=== PATIENT | male | born 1945 | race Caucasian/White ===

== ENCOUNTER 2018-08-15 17:28 | Emergency (ER) | payer MEDICARE, MEDICAID ==
[~2018-08-15] VITALS: Ht 177.8 cm; Wt 71.5 kg
[2018-08-15] MEDS ORDERED: acetaminophen 325mg tablet PO ONE (17:40)
--- NOTE | 2018-08-15 17:44 | NUR ---
HAVING SHORTNESS OF BREATH X 2 DAYS. BECAME WORSE TODAY. RESP TACHYPNIC AT 22/MIN. O2 SAT 94% ON ROOM AIR.
[2018-08-15 17:58] LABS: BASOPHILS % (AUTO) 0.4 % (0-1); EOSINOPHILS % (AUTO) 0.3 % (0-6); HEMATOCRIT 45.8 % (42.0-52.0); LYMPHOCYTES # (AUTO) 1.3 X10'3 (1.1-4.8); LYMPHOCYTES % (AUTO) 15.9 % (21-51); MEAN CORPUSCULAR HEMOGLOBIN 32.9 PG (27.0-31.0); MEAN CORPUSCULAR VOLUME 93.9 FL (78-98); MEAN PLATELET VOLUME 7.2 FL (7.4-10.4); MONOCYTES % (AUTO) 12.1 % (2-12); NEUTROPHILS # (AUTO) 5.9 X10'3 (1.8-7.7); NEUTROPHILS % (AUTO) 71.3 % (42-75); PLATELET COUNT 208 X10'3 (140-440); RED BLOOD COUNT 4.87 X10'6 (4.70-6.10); RED CELL DISTRIBUTION WIDTH 13.9 % (11.5-14.5); WHITE BLOOD COUNT 8.3 X10'3 (4.5-11.0)
[2018-08-15] MEDS ORDERED: methylPREDNISolone sod succ 125mg/2ml vial IV ONE (18:10)
[2018-08-15] MEDS ORDERED: ipratropium/albuterol 3ml nebule NEB ONE (18:10)
[2018-08-15 18:24] LABS: ALANINE AMINOTRANSFERASE 44 U/L (12-78); ALBUMIN 4.2 G/DL (3.4-5.0); ALBUMIN/GLOBULIN RATIO 0.9 (1.1-1.5); ALKALINE PHOSPHATASE 98 IU/L (46-116); ANION GAP 9 (8-16); ASPARTATE AMINO TRANSFERASE 34 U/L (10-37); BILIRUBIN,TOTAL 0.6 MG/DL (0.1-1.0); BLOOD UREA NITROGEN 11 MG/DL (7-18); BUN/CREATININE RATIO 9.8 (5.4-32.0); CALCIUM 9.4 MG/DL (8.5-10.1); CHLORIDE 98 MMOL/L (99-107); CREATININE 1.12 MG/DL (0.60-1.10); GLUCOSE 100 MG/DL (70-104); POTASSIUM 4.1 MMOL/L (3.5-5.1); SODIUM 133 MMOL/L (135-145); TOTAL CARBON DIOXIDE 26.4 MMOL/L (24-32); TOTAL PROTEIN 9.1 G/DL (6.4-8.2); eGFR 64 ML/MIN
[2018-08-15] MEDS ORDERED: azithromycin/NS 500mg/250ml 250 ML IV ONE (18:30)
[2018-08-15] MEDS ORDERED: CefTRIAXone/D5W-Rocephin 1gm 50 ML IV ONE (18:30)
[2018-08-15] MEDS ORDERED: AZIT250T83 PO (19:40)
[2018-08-15] MEDS ORDERED: PRED20TA PO (19:40)
--- NOTE | 2018-08-15 20:06 | NUR ---
RT AT BEDSIDE
[2018-08-15 20:35] VITALS: BP 141/91
== END 2018-08-15 20:37 | disposition home or self-care (01) ==
LOC: ER 17:28
DX: J44.1 Chronic obstructive pulmonary disease with (acute) exacerbation (principal); J06.9 Acute upper respiratory infection, unspecified; F17.200 Nicotine dependence, unspecified, uncomplicated; G89.29 Other chronic pain; Z79.899 Other long term (current) drug therapy; Z88.5 Allergy status to narcotic agent
CPT/HCPCS: 36415; 71046; 80053; 83605; 85025; 87040; 93005; 94640; 94760; 96365; 96367; 96375; 99284; J0456; J0696; J2930

== ENCOUNTER 2019-02-27 09:23 | Emergency (ER) | payer MEDICARE, MEDICAID ==
[~2019-02-27] VITALS: Ht 177.8 cm; Wt 68.1 kg
[2019-02-27 09:28] VITALS: BP 158/115
[2019-02-27] MEDS ORDERED: HYDR-3965 PO (12:32)
== END 2019-02-27 12:44 | disposition home or self-care (01) ==
LOC: ER 09:24
DX: G89.29 Other chronic pain (principal); M54.2 Cervicalgia; J44.9 Chronic obstructive pulmonary disease, unspecified; Z88.5 Allergy status to narcotic agent; Z79.899 Other long term (current) drug therapy
CPT/HCPCS: 99283

== ENCOUNTER 2020-07-08 10:36 | Emergency (ER) | payer MEDICARE, MEDICAID ==
[~2020-07-08] VITALS: Ht 175.3 cm; Wt 65.1 kg
[2020-07-08] MEDS ORDERED: cloNIDine 0.1 mg tablet PO ONE (10:45)
[2020-07-08] MEDS ORDERED: traMADol 50MG tablet PO ONE (10:45)
[2020-07-08 11:23] LABS: BASOPHILS % (AUTO) 0.3 % (0-1); EOSINOPHILS # (AUTO) 0.2 X10'3 (0-0.9); EOSINOPHILS % (AUTO) 2.4 % (0-6); HEMATOCRIT 47.4 % (42.0-52.0); HEMOGLOBIN 16.3 g/dl (14.0-17.9); LYMPHOCYTES # (AUTO) 1.5 X10'3 (1.1-4.8); LYMPHOCYTES % (AUTO) 15.4 % (21-51); MEAN CORPUSCULAR HEMOGLOBIN 32.5 PG (27.0-31.0); MEAN CORPUSCULAR HGB CONC 34.3 g/dL (33.0-36.5); MEAN CORPUSCULAR VOLUME 94.6 FL (78-98); MEAN PLATELET VOLUME 7.3 FL (7.4-10.4); MONOCYTES # (AUTO) 1.1 X10'3 (0-0.9); MONOCYTES % (AUTO) 11.1 % (2-12); NEUTROPHILS # (AUTO) 6.9 X10'3 (1.8-7.7); NEUTROPHILS % (AUTO) 70.8 % (42-75); PLATELET COUNT 255 X10'3 (140-440); RED BLOOD COUNT 5.01 X10'6 (4.70-6.10); RED CELL DISTRIBUTION WIDTH 13.5 % (11.5-14.5); WHITE BLOOD COUNT 9.7 X10'3 (4.5-11.0)
[2020-07-08 11:30] LABS: ALANINE AMINOTRANSFERASE 32 U/L (12-78); ALBUMIN 3.9 G/DL (3.4-5.0); ALBUMIN/GLOBULIN RATIO 0.8 (1.1-1.5); ALKALINE PHOSPHATASE 103 IU/L (46-116); ANION GAP 10 (8-16); ASPARTATE AMINO TRANSFERASE 24 U/L (10-37); BILIRUBIN,TOTAL 0.5 MG/DL (0.1-1.0); BLOOD UREA NITROGEN 14 MG/DL (7-18); BUN/CREATININE RATIO 15.2 (5.4-32.0); CALCIUM 9.5 MG/DL (8.5-10.1); CHLORIDE 98 MMOL/L (99-107); CREATININE 0.92 MG/DL (0.60-1.10); GLUCOSE 110 MG/DL (70-104); POTASSIUM 4.7 MMOL/L (3.5-5.1); SODIUM 136 MMOL/L (135-145); TOTAL CARBON DIOXIDE 27.6 MMOL/L (24-32); eGFR 80 ML/MIN
[2020-07-08] MEDS ORDERED: TRAM50TA2 PO (11:51)
[2020-07-08 12:19] VITALS: BP 165/109
== END 2020-07-08 12:22 | disposition home or self-care (01) ==
LOC: ER 10:37
DX: F11.23 Opioid dependence with withdrawal (principal); I10 Essential (primary) hypertension; M54.2 Cervicalgia; J44.9 Chronic obstructive pulmonary disease, unspecified; G89.29 Other chronic pain; Z88.5 Allergy status to narcotic agent; Z79.899 Other long term (current) drug therapy
CPT/HCPCS: 36415; 80053; 84484; 85025; 93005; 99284

== ENCOUNTER 2020-08-07 19:15 | Inpatient (IN) | payer MEDICARE, MEDICAID ==
[~2020-08-07] VITALS: Ht 172.7 cm; Wt 69.4 kg
[~2020-08-07 19:15] MED LIST: ALBU18HF2 INH; ALBU2.5V7 INH; ATOR10TA70 PO; FLUT16SP26 NS; LANS30CA37 PO; LEVO50TA8 PO; LORA10TA7 PO; PRED10TA23 PO; TRAM50TA2 PO; UMEC62.5 INH; rocuronium 10mg/ml inj IV ONE
[2020-08-07] MEDS ORDERED: dexamethasone sod phosphate 10mg/ml inj IV STA (19:20)
[2020-08-07] MEDS ORDERED: MIDAZolam 5mg/ml 2ml vial IV ONE (19:20)
[2020-08-07] MEDS: propofol 1000mg/100ml bottle 100 ML IV SCH (19:28)
[2020-08-07 19:59] LABS: BASOPHILS % (AUTO) 0.2 % (0-1); EOSINOPHILS # (AUTO) 0.2 X10'3 (0-0.9); EOSINOPHILS % (AUTO) 2.1 % (0-6); HEMATOCRIT 42.3 % (42.0-52.0); HEMOGLOBIN 14.5 g/dl (14.0-17.9); LYMPHOCYTES # (AUTO) 1.1 X10'3 (1.1-4.8); LYMPHOCYTES % (AUTO) 10.6 % (21-51); MEAN CORPUSCULAR HGB CONC 34.2 g/dL (33.0-36.5); MEAN CORPUSCULAR VOLUME 96.4 FL (78-98); MEAN PLATELET VOLUME 6.9 FL (7.4-10.4); MONOCYTES # (AUTO) 0.7 X10'3 (0-0.9); MONOCYTES % (AUTO) 6.8 % (2-12); NEUTROPHILS # (AUTO) 8.2 X10'3 (1.8-7.7); NEUTROPHILS % (AUTO) 80.3 % (42-75); PLATELET COUNT 154 X10'3 (140-440); RED BLOOD COUNT 4.39 X10'6 (4.70-6.10); RED CELL DISTRIBUTION WIDTH 14.1 % (11.5-14.5); WHITE BLOOD COUNT 10.2 X10'3 (4.5-11.0)
[2020-08-07 20:06] LABS: ABG BASE EXCESS -1.3 mmol/L (-2.0-2.0); ABG HCO3 26.6 mmol/L (22.0-26.0); ABG OXYGEN SATURATION 99.7 % (94-97); ABG PO2 (T) 349.5 mmHg (75.0-100.0); ALLEN'S TEST Modified; FCOHb 0.8 % (0.0-3.9); FMetHb 0.5 % (0.0-1.5); FO2Hb 98.4 % (94-97); PATIENT TEMPERATURE 37.1; PEEP 5 cm H2O; RESPIRATORY RATE 16 b/min; TIDAL VOLUME 450 mL
[2020-08-07 20:15] LABS: ALANINE AMINOTRANSFERASE 35 U/L (12-78); ALBUMIN 3.1 G/DL (3.4-5.0); ALBUMIN/GLOBULIN RATIO 0.7 (1.1-1.5); ALKALINE PHOSPHATASE 94 IU/L (46-116); ANION GAP 9 (8-16); ASPARTATE AMINO TRANSFERASE 33 U/L (10-37); BILIRUBIN,TOTAL 0.4 MG/DL (0.1-1.0); BLOOD UREA NITROGEN 11 MG/DL (7-18); BUN/CREATININE RATIO 11.8 (5.4-32.0); CHLORIDE 100 MMOL/L (99-107); CREATININE 0.93 MG/DL (0.60-1.10); GLUCOSE 132 MG/DL (70-104); SODIUM 137 MMOL/L (135-145); TOTAL CARBON DIOXIDE 28.4 MMOL/L (24-32); TOTAL PROTEIN 7.7 G/DL (6.4-8.2); eGFR 79 ML/MIN
[2020-08-07 20:19] LABS: POTASSIUM 3.9 MMOL/L (3.5-5.1)
[2020-08-07 20:22] LABS: TRIGLYCERIDES 59 MG/DL (20-135)
[2020-08-07] MEDS ORDERED: heparin 10,000 units/1 ML INJ IV PRN (20:30)
[2020-08-07] MEDS ORDERED: heparin 25,000 UNIT/250ml bag 250 ML IV SCH (20:30)
[2020-08-07] MEDS ORDERED: heparin 10,000 units/1 ML INJ IV ONE ×2 (20:30)
--- NOTE | 2020-08-07 21:03 | NUR ---
DR. MICHELLE CALLED TO UPDATE THAT PT WITH SYSTOLIC BPS' DROPPING TO MID 90'S AND REQUESTING ADTL SEDATION RX FOR MANAGEMENT. VERBAL RECEIVED TO AD FENTANYL PROTOCOL FOR SEDATION. AND FENTANYL 100 MCG IV PUSH X1 NOW. PT AWAITING IPA.
[2020-08-07] MEDS ORDERED: FENTANYL-0.9 % NACL/PF 100 ML IV PRN (21:10)
[2020-08-07] MEDS ORDERED: fentaNYL/PF 50MCG/1 ML 2ML syringe IV ONE (21:10)
--- NOTE | 2020-08-07 21:30 | NUR ---
PTS BP DROPPING TO 76 SYSTOLIC, LEVOPHED STARTED (TELEPHONE BERBAL RECEIVED FROM DR. MILLIGAN EARLIER TO STARTE THIS IF PTS BPS' DROPPING). FENTANYL GTT AND PROPOFOL GTT AND LEVOPHED NOW INFUSING AT 12.9 ML HR. B 112/80. HR 97
[2020-08-07] MEDS ORDERED: NORepinephrine inj. 8 MG in dextrose 5%-water 242 ML IV SCH (21:45)
--- NOTE | 2020-08-07 22:00 | NUR ---
YAMILETH LEDESMA, AT BEDSDIE AND ET TUBE NOTED TO HAVE MIGRATED SLIGHTLY. REPOSITIONED AND VENT NO LONGER ALARMING. AWAITING PTT RESULT TO START HEPARIN GTT.
[2020-08-07 22:07] LABS: PARTIAL THROMBOPLASTIN TIME 28 SECONDS (22-32)
[2020-08-07] MEDS ORDERED: acetaminophen 325mg tablet PO PRN ×2 (22:30)
[2020-08-07] MEDS ORDERED: ondansetron/PF 4mg/2ml inj IV PRN (22:30)
[2020-08-07] MEDS ORDERED: morphine 2 MG/ML inj. syringe IV PRN (22:30)
[2020-08-07] MEDS ORDERED: magnesium hydroxide 30ml (MOM) UD suspension PO PRN (22:30)
--- NOTE | 2020-08-07 23:11 | NUR ---
DR MILLIGAN CALLED TO UPDATE 3 HR TROP 1.48 UP FROM 0.13. NO NEW ORDERS. PT IS ON HEPARIN GTT AND DID RECEIVE THE PROTOCOL BOULS. PT REMAINS ON LEVOPHED, FENT GTT, PROPOFOL GTT. BY
--- NOTE | 2020-08-07 23:13 | NUR ---
REPORT TO MARISA EGAN, ICU, IPA [id number]
--- NOTE | 2020-08-07 23:40 | NUR ---
Received Report from Indy CUNNINGHAM. PT [facility]. PT on ventilator and was bolused by diprivan during transfer when patient became agitated.
[2020-08-08] VITALS (24 sets, daily range): BP systolic 91–127; BP diastolic 56–79
[2020-08-08] MEDS: propofol 1000mg/100ml bottle 100 ML IV SCH ×4 (00:10→18:49)
[2020-08-08] MEDS ORDERED: dexmedetomidine/D5W 100mL 100 ML IV PRN (01:15)
[2020-08-08] MEDS: NORepinephrine 8mg/ 250ml NS 250 ML IV SCH ×2 (01:33→09:49)
[2020-08-08] MEDS: methylPREDNISolone sod succ 125mg/2ml vial IV SCH ×4 (02:03→19:51)
[2020-08-08] MEDS ORDERED: heparin 10,000 units/1 ML INJ IV PRN (02:15)
[2020-08-08] MEDS: ipratropium/albuterol 3ml nebule NEB SCH ×4 (03:10→20:45)
[2020-08-08 03:35] LABS: BASOPHILS % (AUTO) 0 % (0-1); EOSINOPHILS % (AUTO) 0 % (0-6); HEMATOCRIT 40.2 % (42.0-52.0); HEMOGLOBIN 13.7 g/dl (14.0-17.9); LYMPHOCYTES # (AUTO) 0.5 X10'3 (1.1-4.8); LYMPHOCYTES % (AUTO) 3.4 % (21-51); MEAN CORPUSCULAR HEMOGLOBIN 32.8 PG (27.0-31.0); MEAN CORPUSCULAR HGB CONC 33.9 g/dL (33.0-36.5); MEAN CORPUSCULAR VOLUME 96.5 FL (78-98); MEAN PLATELET VOLUME 7.9 FL (7.4-10.4); MONOCYTES # (AUTO) 0.4 X10'3 (0-0.9); MONOCYTES % (AUTO) 2.7 % (2-12); NEUTROPHILS # (AUTO) 13.3 X10'3 (1.8-7.7); NEUTROPHILS % (AUTO) 93.9 % (42-75); PLATELET COUNT 192 X10'3 (140-440); RED BLOOD COUNT 4.17 X10'6 (4.70-6.10); RED CELL DISTRIBUTION WIDTH 14.1 % (11.5-14.5); WHITE BLOOD COUNT 14.2 X10'3 (4.5-11.0)
[2020-08-08 03:48] LABS: ALANINE AMINOTRANSFERASE 30 U/L (12-78); ALBUMIN 2.9 G/DL (3.4-5.0); ALBUMIN/GLOBULIN RATIO 0.7 (1.1-1.5); ALKALINE PHOSPHATASE 79 IU/L (46-116); ANION GAP 10 (8-16); ASPARTATE AMINO TRANSFERASE 29 U/L (10-37); BILIRUBIN,TOTAL 0.7 MG/DL (0.1-1.0); BLOOD UREA NITROGEN 13 MG/DL (7-18); BUN/CREATININE RATIO 11.3 (5.4-32.0); CALCIUM 8.9 MG/DL (8.5-10.1); CHLORIDE 99 MMOL/L (99-107); CREATININE 1.15 MG/DL (0.60-1.10); GLUCOSE 245 MG/DL (70-104); MAGNESIUM 1.8 MG/DL (1.5-2.4); PHOSPHORUS 2.8 MG/DL (2.3-4.5); POTASSIUM 4.2 MMOL/L (3.5-5.1); SODIUM 134 MMOL/L (135-145); TOTAL PROTEIN 7.3 G/DL (6.4-8.2); TRIGLYCERIDES 44 MG/DL (20-135); eGFR 62 ML/MIN
[2020-08-08 03:54] LABS: PARTIAL THROMBOPLASTIN TIME 129 SECONDS (22-32)
[2020-08-08 04:02] LABS: ABG BASE EXCESS -2.4 mmol/L (-2.0-2.0); ABG HCO3 22.7 mmol/L (22.0-26.0); ABG OXYGEN SATURATION 92.5 % (94-97); ABG PCO2 (T) 38.6 mmHg (35.0-48.0); ABG PO2 (T) 60.5 mmHg (75.0-100.0); FMetHb 0.3 % (0.0-1.5); FO2Hb 91.3 % (94-97); PATIENT TEMPERATURE 36.2; RESPIRATORY RATE 20 b/min; TIDAL VOLUME 500 mL; TOTAL HEMOGLOBIN 15.1 G/dl (14.0-18.0)
--- NOTE | 2020-08-08 04:38 | NUR ---
critical Ptt, blood redrawn. still high, heparin stopped.
--- NOTE | 2020-08-08 04:56 | NUR ---
DR. Lewis did tele med rounds, Due to the high troponins he wanted the O2 saturations to be above 92 %, in case patient is having a NSTEMI. He wanted the Levophed titrated down as well as the diprivan.
[2020-08-08] MEDS: FENTANYL-0.9 % NACL/PF 100 ML IV PRN ×2 (05:17→15:09)
--- NOTE | 2020-08-08 06:26 | NUR ---
Patient in room ICU 2040. I have received report from Jayesh CUNNINGHAM and had the opportunity to ask questions and assume patient care.
[2020-08-08] MEDS: heparin 25,000 UNIT/250ml bag 250 ML IV SCH ×3 (06:54→16:47)
[2020-08-08] MEDS: azithromycin/NS 500mg/250ml 250 ML IV SCH (07:28)
[2020-08-08] MEDS ORDERED: normal saline 1000ml 1,000 ML IV ONE (07:45)
[2020-08-08] MEDS: normal saline 1000ml 1,000 ML IV SCH ×2 (07:53→17:46)
[2020-08-08] MEDS ORDERED: azithromycin 250mg tablet PO SCH (08:00)
[2020-08-08] MEDS ORDERED: atorvastatin 20mg tablet PO SCH (08:00)
[2020-08-08 08:28] LABS: ABG BASE EXCESS -3.4 mmol/L (-2.0-2.0); ABG HCO3 21.3 mmol/L (22.0-26.0); ABG OXYGEN SATURATION 97.1 % (94-97); ABG PCO2 (T) 36.6 mmHg (35.0-48.0); ABG PO2 (T) 89.8 mmHg (75.0-100.0); ALLEN'S TEST POSITIVE; FCOHb 0.1 % (0.0-3.9); FMetHb 0.2 % (0.0-1.5); FO2Hb 96.8 % (94-97); PATIENT TEMPERATURE 36.4; PEEP 6 cm H2O; RESPIRATORY RATE 20 b/min; TIDAL VOLUME 450 mL; TOTAL HEMOGLOBIN 14.1 G/dl (14.0-18.0)
[2020-08-08] MEDS ORDERED: aspirin 325mg tablet PO SCH (08:30)
[2020-08-08] MEDS ORDERED: pantoprazole 40 MG vial IV ONE (10:08)
[2020-08-08] MEDS ORDERED: magnesium hydroxide 30ml (MOM) UD suspension PO PRN (10:10)
--- NOTE | 2020-08-08 10:47 | NUR ---
TF consult: Pt presented with respiratory distress requiring intubation. OG tube documented to be in place, see TF recommendations below. Noted that pt with a low Audi of 10, no edema or wounds per physical assessment. Unknown LBM, PRN bowel care available though pt would benefit from routine bowel care. Will continue to follow closely and make recommendations as appropriate. Recommendations: 1) Continuous TF via OG tube using Vital AF with goal rate of 65 mL/hr to provide 1560 mL total volume/day, 1872 kcal, 117 g protein, and 1256 mL water 2) No water flushes at this time given low serum Na (134 MMOL/L) 3) Prealbumin q Tuesday/ 4) Daily weights 5) Routine bowel care Addendum: 08/08/20 at [address] Amended: Links added.
[2020-08-08] MEDS ORDERED: acetaminophen 325mg/10.15ml oral unit dose solution OGT PRN ×2 (10:54)
[2020-08-08] MEDS ORDERED: magnesium hydroxide 30ml (MOM) UD suspension OGT PRN ×2 (10:55→10:56)
[2020-08-08] MEDS ORDERED: LANS30CA56 PO (12:18)
[2020-08-08] MEDS: dexmedetomidine/D5W 100mL 100 ML IV SCH (14:33)
[2020-08-08] MEDS ORDERED: dextrose 50%-water 50ml dispensing syringe IV PRN ×2 (15:15)
[2020-08-08] MEDS ORDERED: glucagon, human recombinant 1mg kit SUBCUT PRN (15:15)
[2020-08-08] MEDS ORDERED: dextrose ORAL solution 15 GM/59 ML bottle PO PRN ×2 (15:15)
[2020-08-08] MEDS: insulin regular, human U-100 3ml vial - multi-dose SQ SCH ×2 (15:44→19:47)
--- NOTE | 2020-08-08 18:26 | NUR ---
Problems reprioritized. Patient report given, questions answered & plan of care reviewed with Jayesh CUNNINGHAM.
--- NOTE | 2020-08-08 19:28 | NUR ---
Patient in room ICU 2040. I have received report from Purnima CUNNINGHAM and had the opportunity to ask questions and assume patient care.
[2020-08-08] MEDS: insulin glargine (Lantus) pen - multi-dose SQ SCH (19:48)
[2020-08-08] MEDS: lactobacillus rhamnosus 10,000 MMU CELLS/CAPSULE PO SCH (19:51)
[2020-08-09] VITALS (24 sets, daily range): BP systolic 88–132; BP diastolic 53–81
[2020-08-09] MEDS: dexmedetomidine/D5W 100mL 100 ML IV SCH ×2 (00:50→10:51)
[2020-08-09] MEDS ORDERED: mineral oil/petrolatum ophthal oint EACHEYE SCH (02:00)
[2020-08-09] MEDS: insulin regular, human U-100 3ml vial - multi-dose SQ SCH ×2 (02:12→08:58)
[2020-08-09] MEDS: methylPREDNISolone sod succ 125mg/2ml vial IV SCH ×4 (02:17→20:15)
[2020-08-09] MEDS: mineral oil/petrolatum ophthal oint EACHEYE SCH ×4 (02:17→20:00)
[2020-08-09] MEDS: ipratropium/albuterol 3ml nebule NEB SCH ×4 (02:55→20:42)
[2020-08-09 03:01] LABS: BASOPHILS % (AUTO) 0.2 % (0-1); EOSINOPHILS % (AUTO) 0 % (0-6); HEMATOCRIT 36.5 % (42.0-52.0); HEMOGLOBIN 12.4 g/dl (14.0-17.9); LYMPHOCYTES # (AUTO) 0.6 X10'3 (1.1-4.8); LYMPHOCYTES % (AUTO) 4.2 % (21-51); MEAN CORPUSCULAR HEMOGLOBIN 32.6 PG (27.0-31.0); MEAN CORPUSCULAR VOLUME 95.8 FL (78-98); MEAN PLATELET VOLUME 7.7 FL (7.4-10.4); MONOCYTES # (AUTO) 0.5 X10'3 (0-0.9); NEUTROPHILS # (AUTO) 12.2 X10'3 (1.8-7.7); NEUTROPHILS % (AUTO) 91.6 % (42-75); PLATELET COUNT 170 X10'3 (140-440); RED BLOOD COUNT 3.81 X10'6 (4.70-6.10); WHITE BLOOD COUNT 13.3 X10'3 (4.5-11.0)
[2020-08-09 03:19] LABS: ALANINE AMINOTRANSFERASE 25 U/L (12-78); ALBUMIN 2.3 G/DL (3.4-5.0); ALBUMIN/GLOBULIN RATIO 0.6 (1.1-1.5); ALKALINE PHOSPHATASE 63 IU/L (46-116); ANION GAP 6 (8-16); ASPARTATE AMINO TRANSFERASE 24 U/L (10-37); BILIRUBIN,TOTAL 0.2 MG/DL (0.1-1.0); BLOOD UREA NITROGEN 9 MG/DL (7-18); BUN/CREATININE RATIO 12.9 (5.4-32.0); CALCIUM 8.4 MG/DL (8.5-10.1); CHLORIDE 108 MMOL/L (99-107); GLUCOSE 137 MG/DL (70-104); PHOSPHORUS 2.5 MG/DL (2.3-4.5); SODIUM 141 MMOL/L (135-145); TOTAL CARBON DIOXIDE 27.4 MMOL/L (24-32); TOTAL PROTEIN 6.4 G/DL (6.4-8.2); TRIGLYCERIDES 49 MG/DL (20-135); eGFR > 90 ML/MIN
[2020-08-09 03:47] LABS: ABG BASE EXCESS -0.3 mmol/L (-2.0-2.0); ABG HCO3 23.9 mmol/L (22.0-26.0); ABG OXYGEN SATURATION 93.1 % (94-97); ABG PCO2 (T) 36.4 mmHg (35.0-48.0); ABG PO2 (T) 62.4 mmHg (75.0-100.0); FCOHb 0.3 % (0.0-3.9); FMetHb 0.2 % (0.0-1.5); FO2Hb 92.6 % (94-97); PATIENT TEMPERATURE 36.4; PEEP 6 cm H2O; RESPIRATORY RATE 18 b/min; TIDAL VOLUME 450 mL; TOTAL HEMOGLOBIN 12.9 G/dl (14.0-18.0)
[2020-08-09] MEDS ORDERED: levoTHYROXINE 25mcg tablet PO ONE (04:21)
[2020-08-09] MEDS: normal saline 1000ml 1,000 ML IV SCH ×3 (04:55→23:45)
[2020-08-09] MEDS: azithromycin/NS 500mg/250ml 250 ML IV SCH (08:34)
[2020-08-09] MEDS: pantoprazole 40 MG vial IV SCH (08:38)
[2020-08-09] MEDS: aspirin 325mg tablet OGT SCH (08:39)
[2020-08-09] MEDS: lactobacillus rhamnosus 10,000 MMU CELLS/CAPSULE PO SCH ×2 (08:39→20:15)
[2020-08-09] MEDS: atorvastatin 20mg tablet OGT SCH (08:40)
[2020-08-09] MEDS: NORepinephrine 8mg/ 250ml NS 250 ML IV SCH (11:57)
[2020-08-09] MEDS: traMADol 50MG tablet PO PRN ×2 (15:09→20:29)
[2020-08-09] MEDS ORDERED: insulin Lispro (HumaLOG) vial - multi-dose SQ SCH (16:00)
--- NOTE | 2020-08-09 19:00 | NUR ---
Patient in room ICU 2040. I have received report from ANAIS CUNNINGHAM and had the opportunity to ask questions and assume patient care.
[2020-08-09] MEDS: insulin glargine (Lantus) pen - multi-dose SQ SCH (21:00)
[2020-08-09] MEDS: heparin 25,000 UNIT/250ml bag 250 ML IV SCH (22:58)
[2020-08-10] VITALS (28 sets, daily range): BP systolic 124–181; BP diastolic 67–111
[2020-08-10] MEDS: propofol 1000mg/100ml bottle 100 ML IV SCH (01:05)
[2020-08-10] MEDS: mineral oil/petrolatum ophthal oint EACHEYE SCH ×5 (02:00→21:00)
[2020-08-10] MEDS: traMADol 50MG tablet PO PRN ×3 (02:55→18:17)
[2020-08-10] MEDS: levoTHYROXINE 25mcg tablet PO SCH (02:57)
[2020-08-10] MEDS: methylPREDNISolone sod succ 125mg/2ml vial IV SCH ×4 (02:58→20:43)
[2020-08-10] MEDS: ipratropium/albuterol 3ml nebule NEB SCH ×4 (03:27→22:30)
[2020-08-10 03:50] LABS: BASOPHILS % (AUTO) 0.1 % (0-1); EOSINOPHILS % (AUTO) 0 % (0-6); HEMATOCRIT 37.3 % (42.0-52.0); HEMOGLOBIN 12.6 g/dl (14.0-17.9); LYMPHOCYTES # (AUTO) 0.6 X10'3 (1.1-4.8); LYMPHOCYTES % (AUTO) 4.3 % (21-51); MEAN CORPUSCULAR HEMOGLOBIN 32.3 PG (27.0-31.0); MEAN CORPUSCULAR HGB CONC 33.9 g/dL (33.0-36.5); MEAN CORPUSCULAR VOLUME 95.3 FL (78-98); MEAN PLATELET VOLUME 7.6 FL (7.4-10.4); MONOCYTES # (AUTO) 0.5 X10'3 (0-0.9); MONOCYTES % (AUTO) 3.4 % (2-12); NEUTROPHILS # (AUTO) 12.6 X10'3 (1.8-7.7); NEUTROPHILS % (AUTO) 92.2 % (42-75); PLATELET COUNT 179 X10'3 (140-440); RED BLOOD COUNT 3.92 X10'6 (4.70-6.10); RED CELL DISTRIBUTION WIDTH 14.2 % (11.5-14.5); WHITE BLOOD COUNT 13.7 X10'3 (4.5-11.0)
[2020-08-10 04:03] LABS: ALANINE AMINOTRANSFERASE 36 U/L (12-78); ALBUMIN 2.4 G/DL (3.4-5.0); ALBUMIN/GLOBULIN RATIO 0.6 (1.1-1.5); ALKALINE PHOSPHATASE 68 IU/L (46-116); ANION GAP 6 (8-16); ASPARTATE AMINO TRANSFERASE 32 U/L (10-37); BILIRUBIN,TOTAL 0.3 MG/DL (0.1-1.0); BLOOD UREA NITROGEN 15 MG/DL (7-18); CALCIUM 8.4 MG/DL (8.5-10.1); CHLORIDE 107 MMOL/L (99-107); CREATININE 0.75 MG/DL (0.60-1.10); GLUCOSE 104 MG/DL (70-104); MAGNESIUM 1.8 MG/DL (1.5-2.4); PHOSPHORUS 2.5 MG/DL (2.3-4.5); SODIUM 140 MMOL/L (135-145); TOTAL CARBON DIOXIDE 27.1 MMOL/L (24-32); TOTAL PROTEIN 6.5 G/DL (6.4-8.2); eGFR > 90 ML/MIN
[2020-08-10] MEDS: NORepinephrine 8mg/ 250ml NS 250 ML IV SCH ×2 (07:21→21:19)
[2020-08-10] MEDS: aspirin 325mg tablet OGT SCH (07:47)
[2020-08-10] MEDS: lactobacillus rhamnosus 10,000 MMU CELLS/CAPSULE PO SCH ×2 (07:47→20:42)
[2020-08-10] MEDS: atorvastatin 20mg tablet OGT SCH (07:48)
[2020-08-10] MEDS: pantoprazole 40 MG vial IV SCH (07:48)
[2020-08-10] MEDS: azithromycin/NS 500mg/250ml 250 ML IV SCH (07:51)
[2020-08-10] MEDS: dexmedetomidine/D5W 100mL 100 ML IV SCH ×2 (09:49→21:19)
[2020-08-10] MEDS ORDERED: atenolol 50mg tablet PO ONE (13:25)
[2020-08-10] MEDS: normal saline 1000ml 1,000 ML IV SCH (14:53)
--- NOTE | 2020-08-10 18:20 | NUR ---
Problems reprioritized. Patient report given, questions answered & plan of care reviewed with MARISA Ortez.
--- NOTE | 2020-08-10 18:30 | NUR ---
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
--- NOTE | 2020-08-10 18:30 | NUR ---
Patient in room ICU 2040. I have received report from MARISA Lou and had the opportunity to ask questions and assume patient care.
[2020-08-10] MEDS ORDERED: midazolam 1 mg/ML 2ml injection ONE ×2 (18:33→19:32)
[2020-08-10] MEDS ORDERED: LIDOcaine 1% (10mg/ml)w/preservative injection 20ml MDV ONE (18:33)
[2020-08-10] MEDS ORDERED: iohexol 350 MG/ML 50ML vial IV ONE (18:33)
[2020-08-10] MEDS ORDERED: iohexol 350MG/ML 100ml bottle IV ONE ×2 (18:33→19:24)
[2020-08-10] MEDS ORDERED: fentaNYL/PF 50MCG/1 ML 2ML syringe ONE (18:33)
[2020-08-10] MEDS ORDERED: heparin 1,000unit/ml 10ml vial 10 ML ONE (18:33)
--- NOTE | 2020-08-10 18:55 | NUR ---
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
[2020-08-10] MEDS ORDERED: clopidogrel 300mg tablet ONE (20:01)
[2020-08-10] MEDS ORDERED: metoprolol tartrate 1mg/ml inj IV ONE (20:11)
--- NOTE | 2020-08-10 20:30 | NUR ---
back from [facility]
[2020-08-10] MEDS: atenolol 50mg tablet PO SCH (20:43)
[2020-08-10] MEDS: insulin glargine (Lantus) pen - multi-dose SQ SCH (21:00)
[2020-08-10] MEDS ORDERED: labetalol 20mg/4ml (5mg/ml) syringe IV ONE (21:35)
--- NOTE | 2020-08-10 21:36 | NUR ---
MD Garnett notified of patient's high blood pressure, last 181/104. ordered a one time order of labetalol 10 IV and a cardene drip if that does not work. will give and continue to monitor.
[2020-08-10] MEDS ORDERED: normal saline 1000ml 1,000 ML IV SCH (22:10)
[2020-08-10] MEDS ORDERED: ondansetron/PF 4mg/2ml inj IV PRN (22:10)
[2020-08-10] MEDS ORDERED: proCHLORperazine 10 MG/2 ml inj IV PRN (22:10)
[2020-08-10] MEDS ORDERED: niCARDipine-NS 40mg/200ml IVPB 200 ML IV PRN (23:10)
[2020-08-11] VITALS (19 sets, daily range): BP systolic 102–155; BP diastolic 65–103
[2020-08-11] MEDS: methylPREDNISolone sod succ 125mg/2ml vial IV SCH ×4 (01:44→19:29)
[2020-08-11] MEDS: levoTHYROXINE 25mcg tablet PO SCH (01:44)
[2020-08-11] MEDS: traMADol 50MG tablet PO PRN ×3 (01:59→16:28)
[2020-08-11 02:10] LABS: BASOPHILS % (AUTO) 0.1 % (0-1); EOSINOPHILS % (AUTO) 0 % (0-6); HEMATOCRIT 36.5 % (42.0-52.0); HEMOGLOBIN 12.5 g/dl (14.0-17.9); LYMPHOCYTES # (AUTO) 0.7 X10'3 (1.1-4.8); LYMPHOCYTES % (AUTO) 5.9 % (21-51); MEAN CORPUSCULAR HGB CONC 34.2 g/dL (33.0-36.5); MEAN CORPUSCULAR VOLUME 96.4 FL (78-98); MEAN PLATELET VOLUME 7.2 FL (7.4-10.4); MONOCYTES # (AUTO) 0.4 X10'3 (0-0.9); MONOCYTES % (AUTO) 3.6 % (2-12); NEUTROPHILS # (AUTO) 10.3 X10'3 (1.8-7.7); NEUTROPHILS % (AUTO) 90.4 % (42-75); PLATELET COUNT 182 X10'3 (140-440); RED BLOOD COUNT 3.78 X10'6 (4.70-6.10); RED CELL DISTRIBUTION WIDTH 13.9 % (11.5-14.5); WHITE BLOOD COUNT 11.4 X10'3 (4.5-11.0)
[2020-08-11 02:31] LABS: ALANINE AMINOTRANSFERASE 46 U/L (12-78); ALBUMIN 2.4 G/DL (3.4-5.0); ALBUMIN/GLOBULIN RATIO 0.6 (1.1-1.5); ALKALINE PHOSPHATASE 67 IU/L (46-116); ANION GAP 7 (8-16); ASPARTATE AMINO TRANSFERASE 36 U/L (10-37); BILIRUBIN,TOTAL 0.3 MG/DL (0.1-1.0); BLOOD UREA NITROGEN 16 MG/DL (7-18); BUN/CREATININE RATIO 20.8 (5.4-32.0); CALCIUM 7.9 MG/DL (8.5-10.1); CHLORIDE 105 MMOL/L (99-107); CHOL/HDL RATIO 2.5 (0.00-4.99); CHOLESTEROL 191 MG/DL (0-200); CREATININE 0.77 MG/DL (0.60-1.10); GLUCOSE 146 MG/DL (70-104); HDL CHOLESTEROL 75 MG/DL (35-60); LDL CHOLESTEROL 102 MG/DL (50-100); POTASSIUM 3.6 MMOL/L (3.5-5.1); PREALBUMIN 15.4 MG/DL (19-36); SODIUM 141 MMOL/L (135-145); TOTAL CARBON DIOXIDE 29.5 MMOL/L (24-32); TOTAL PROTEIN 6.4 G/DL (6.4-8.2); TRIGLYCERIDES 57 MG/DL (20-135); eGFR > 90 ML/MIN
[2020-08-11] MEDS: ipratropium/albuterol 3ml nebule NEB SCH ×4 (03:08→20:52)
--- NOTE | 2020-08-11 06:27 | NUR ---
Problems reprioritized. Patient report given, questions answered & plan of care reviewed with MARISA Spangler.
--- NOTE | 2020-08-11 06:30 | NUR ---
Received report from MARISA Ortez
[2020-08-11] MEDS: mineral oil/petrolatum ophthal oint EACHEYE SCH ×3 (06:40→19:29)
[2020-08-11] MEDS: metoprolol tartrate 25mg tablet PO SCH ×2 (08:00→20:00)
[2020-08-11] MEDS: lactobacillus rhamnosus 10,000 MMU CELLS/CAPSULE PO SCH ×2 (08:51→19:29)
[2020-08-11] MEDS: azithromycin/NS 500mg/250ml 250 ML IV SCH (08:51)
[2020-08-11] MEDS: aspirin 325mg tablet OGT SCH (08:51)
[2020-08-11] MEDS: pantoprazole 40 MG vial IV SCH (08:51)
[2020-08-11] MEDS: atenolol 50mg tablet PO SCH (08:52)
[2020-08-11] MEDS: clopidogrel 75mg tablet PO SCH (08:53)
[2020-08-11] MEDS: atorvastatin 20mg tablet OGT SCH (08:53)
--- NOTE | 2020-08-11 10:50 | NUR ---
Reassessment: Pt extubated 08/09 s/p cardiac cath and stent 08/10 per RN. Advanced to carb controlled/SB6 diet per [employer]/MD recs; MINNA d/w RN regarding cancelling carb controlled diet if MD agreeable given no hx DM and GLU 109-146mg/dl on solumedrol. Pt PO 100% initial meals meeting needs. LBM 08/09. Will continue to monitor. Recommendations: 1) Advance diet to regular/SB6 as medically indicated per [employer]/MD recs; no hx DM 2) routine bowel care 3) weekly weights Addendum: 08/11/20 at [address] Amended: Links added.
--- NOTE | 2020-08-11 16:30 | NUR ---
Report called to MARISA Rollins
--- NOTE | 2020-08-11 16:50 | NUR ---
Patient transferred to Telemetry unit room 3015A via wheelchair, youth nutritional monitor, on 2L NC, and with all belongings. Receiving RN, Ria, at bedside.
--- NOTE | 2020-08-11 18:00 | NUR ---
Patient in room PCU 3016R. I have received report from Leeanne RN and had the opportunity to ask questions and assume patient care.
--- NOTE | 2020-08-11 18:06 | NUR ---
[place]rientee documentation: I have reviewed and agree with interventions, assessments performed and documented by Ria CUNNINGHAM. [place] Medication Administration: For this medication-pass time frame, medication were reviewed, dispensed, administered and documented per hospital policy by Ria CUNNINGHAM.
--- NOTE | 2020-08-11 18:20 | NUR ---
Problems reprioritized. Patient report given, questions answered & plan of care reviewed with Clara CUNNINGHAM.
[2020-08-11] MEDS: insulin glargine (Lantus) pen - multi-dose SQ SCH (21:00)
--- NOTE | 2020-08-11 21:40 | NUR ---
pt not given his dose of Lantus. Morning blood sugar unknown, evening blood sugar is 138
[2020-08-12] MEDS: traMADol 50MG tablet PO PRN ×4 (00:10→21:42)
[2020-08-12] MEDS: mineral oil/petrolatum ophthal oint EACHEYE SCH ×4 (01:05→20:00)
[2020-08-12] MEDS: methylPREDNISolone sod succ 125mg/2ml vial IV SCH ×4 (01:05→19:59)
[2020-08-12] MEDS: levoTHYROXINE 25mcg tablet PO SCH (01:05)
[2020-08-12 02:00] VITALS: BP 162/97
[2020-08-12] MEDS: ipratropium/albuterol 3ml nebule NEB SCH ×4 (02:42→21:19)
[2020-08-12 06:00] VITALS: BP 153/92
--- NOTE | 2020-08-12 06:31 | NUR ---
Problems reprioritized. Patient report given, questions answered & plan of care reviewed with MARISA Rollins.
[2020-08-12 06:45] LABS: BASOPHILS % (AUTO) 0 % (0-1); EOSINOPHILS % (AUTO) 0 % (0-6); HEMATOCRIT 38.7 % (42.0-52.0); HEMOGLOBIN 13.3 g/dl (14.0-17.9); LYMPHOCYTES # (AUTO) 0.7 X10'3 (1.1-4.8); LYMPHOCYTES % (AUTO) 6.2 % (21-51); MEAN CORPUSCULAR HEMOGLOBIN 32.8 PG (27.0-31.0); MEAN CORPUSCULAR HGB CONC 34.4 g/dL (33.0-36.5); MEAN CORPUSCULAR VOLUME 95.2 FL (78-98); MEAN PLATELET VOLUME 7.3 FL (7.4-10.4); MONOCYTES # (AUTO) 0.4 X10'3 (0-0.9); MONOCYTES % (AUTO) 3.5 % (2-12); NEUTROPHILS % (AUTO) 90.3 % (42-75); PLATELET COUNT 195 X10'3 (140-440); RED BLOOD COUNT 4.07 X10'6 (4.70-6.10); WHITE BLOOD COUNT 11.1 X10'3 (4.5-11.0)
--- NOTE | 2020-08-12 06:51 | NUR ---
Patient in room PCU 3015. I have received report from Herminia CUNNINGHAM and had the opportunity to ask questions and assume patient care.
[2020-08-12] MEDS: pantoprazole 40 MG vial IV SCH (07:26)
[2020-08-12] MEDS: lactobacillus rhamnosus 10,000 MMU CELLS/CAPSULE PO SCH ×2 (07:33→19:59)
[2020-08-12] MEDS: clopidogrel 75mg tablet PO SCH (07:34)
[2020-08-12] MEDS: atorvastatin 20mg tablet OGT SCH (07:34)
[2020-08-12] MEDS: aspirin 325mg tablet OGT SCH (07:35)
[2020-08-12] MEDS: metoprolol tartrate 25mg tablet PO SCH ×2 (07:35→19:59)
[2020-08-12] MEDS: azithromycin/NS 500mg/250ml 250 ML IV SCH (09:26)
[2020-08-12 11:00] VITALS: BP 143/91
[2020-08-12 15:00] VITALS: BP 135/83
[2020-08-12 18:00] VITALS: BP 165/103
--- NOTE | 2020-08-12 18:11 | NUR ---
Problems reprioritized. Patient report given, questions answered & plan of care reviewed with Arvind CUNNINGHAM.
[2020-08-12] MEDS: insulin glargine (Lantus) pen - multi-dose SQ SCH (21:00)
[2020-08-12 22:00] VITALS: BP 139/85
[2020-08-13 02:00] VITALS: BP 153/95
[2020-08-13] MEDS: mineral oil/petrolatum ophthal oint EACHEYE SCH ×3 (02:00→11:51)
[2020-08-13] MEDS: methylPREDNISolone sod succ 125mg/2ml vial IV SCH ×3 (02:33→14:00)
[2020-08-13] MEDS: levoTHYROXINE 25mcg tablet PO SCH (02:33)
[2020-08-13] MEDS: ipratropium/albuterol 3ml nebule NEB SCH ×2 (03:03→08:44)
[2020-08-13] MEDS: traMADol 50MG tablet PO PRN ×2 (04:06→14:29)
[2020-08-13 06:00] VITALS: BP 186/96
[2020-08-13] MEDS: clopidogrel 75mg tablet PO SCH (07:18)
[2020-08-13] MEDS: pantoprazole 40 MG vial IV SCH (07:18)
[2020-08-13] MEDS: lactobacillus rhamnosus 10,000 MMU CELLS/CAPSULE PO SCH (07:18)
[2020-08-13] MEDS: atorvastatin 20mg tablet OGT SCH (07:18)
[2020-08-13] MEDS: metoprolol tartrate 25mg tablet PO SCH (07:18)
[2020-08-13] MEDS: aspirin 325mg tablet OGT SCH (07:21)
[2020-08-13 07:50] LABS: BASOPHILS % (AUTO) 0.1 % (0-1); EOSINOPHILS % (AUTO) 0 % (0-6); HEMATOCRIT 39.8 % (42.0-52.0); HEMOGLOBIN 13.9 g/dl (14.0-17.9); LYMPHOCYTES # (AUTO) 0.6 X10'3 (1.1-4.8); LYMPHOCYTES % (AUTO) 6.4 % (21-51); MEAN CORPUSCULAR HEMOGLOBIN 33.1 PG (27.0-31.0); MEAN CORPUSCULAR HGB CONC 34.8 g/dL (33.0-36.5); MEAN CORPUSCULAR VOLUME 94.9 FL (78-98); MEAN PLATELET VOLUME 7.5 FL (7.4-10.4); MONOCYTES # (AUTO) 0.4 X10'3 (0-0.9); MONOCYTES % (AUTO) 4.1 % (2-12); NEUTROPHILS # (AUTO) 8.6 X10'3 (1.8-7.7); NEUTROPHILS % (AUTO) 89.4 % (42-75); PLATELET COUNT 224 X10'3 (140-440); RED BLOOD COUNT 4.19 X10'6 (4.70-6.10); RED CELL DISTRIBUTION WIDTH 13.8 % (11.5-14.5); WHITE BLOOD COUNT 9.6 X10'3 (4.5-11.0)
[2020-08-13] MEDS ORDERED: pneumococcal 23-VAL P-sac vacc 25 mcg/0.5ml vial IMVAC ONE (08:00)
[2020-08-13] MEDS ORDERED: ATOR20TA66 PO (09:01)
[2020-08-13] MEDS ORDERED: CLOP75TA34 PO (09:01)
[2020-08-13] MEDS ORDERED: TRAM50TA2 PO (09:01)
[2020-08-13] MEDS ORDERED: LOP25T PO (09:01)
[2020-08-13] MEDS ORDERED: ASPI-1 OGT (09:01)
[2020-08-13 11:49] VITALS: BP 151/90
--- NOTE | 2020-08-13 14:41 | NUR ---
PATIENT DC AT THIS TIME, DC INSTRUCTIONS GIVEN AND IV TAKEN OUT, MEDS FROM PHARMACY PICKED UP AND COUNTED WITH PHARMACISTY WITH CORRECT COUNT PATIENT GIVEN MEDS. NO OTHER NEEDS AT THIS TIME.
[2020-08-14] MEDS ORDERED: lansoprazole 15mg solutab OGT SCH (08:00)
== END 2020-08-13 14:43 | disposition home health service (06) | DRG 246 ==
LOC: ER 19:17 → ED HOLD 22:30 → UNDOADMIN 22:30 → ED HOLD 22:41 → ICU 2S 23:32 → PCU 3S 08-11 16:55
PROVIDERS: ADMIT Internal Medicine Pulmonary Disease; ATTEND Internal Medicine Pulmonary Disease
PROC: 5A1945Z Respiratory Ventilation, 24-96 Consecutive Hours (ICD-10-PCS; 2020-08-07)
PROC: 0BH17EZ Insertion of Endotracheal Airway into Trachea, Via Natural or Artificial Opening (ICD-10-PCS; 2020-08-07)
PROC: 0D9670Z Drainage of Stomach with Drainage Device, Via Natural or Artificial Opening (ICD-10-PCS; 2020-08-07)
PROC: 02HV33Z Insertion of Infusion Device into Superior Vena Cava, Percutaneous Approach (ICD-10-PCS; 2020-08-07)
PROC: B548ZZA Ultrasonography of Superior Vena Cava, Guidance (ICD-10-PCS; 2020-08-07)
PROC: 4A023N7 Measurement of Cardiac Sampling and Pressure, Left Heart, Percutaneous Approach (ICD-10-PCS; principal; 2020-08-10)
PROC: 027135Z Dilation of Coronary Artery, Two Arteries with Two Drug-eluting Intraluminal Devices, Percutaneous Approach (ICD-10-PCS; 2020-08-10)
PROC: B2111ZZ Fluoroscopy of Multiple Coronary Arteries using Low Osmolar Contrast (ICD-10-PCS; 2020-08-10)
PROC: B2151ZZ Fluoroscopy of Left Heart using Low Osmolar Contrast (ICD-10-PCS; 2020-08-10)
DX: I21.4 Non-ST elevation (NSTEMI) myocardial infarction (principal); J96.02 Acute respiratory failure with hypercapnia; J14 Pneumonia due to Hemophilus influenzae; J96.01 Acute respiratory failure with hypoxia; J44.1 Chronic obstructive pulmonary disease with (acute) exacerbation; I42.9 Cardiomyopathy, unspecified; J44.0 Chronic obstructive pulmonary disease with (acute) lower respiratory infection; E11.9 Type 2 diabetes mellitus without complications; I10 Essential (primary) hypertension; Z20.822 Contact with and (suspected) exposure to COVID-19; G89.29 Other chronic pain; F17.210 Nicotine dependence, cigarettes, uncomplicated; I48.91 Unspecified atrial fibrillation; Z78.1 Physical restraint status; Z88.5 Allergy status to narcotic agent; Z79.02 Long term (current) use of antithrombotics/antiplatelets; Z79.899 Other long term (current) drug therapy
CPT/HCPCS: 31500; 36556; 93306; 93458; 96365; 99291; C9600; 36415; 36600; 71045; 80053; 80061; 82803; 82948; 83735; 83880; 84100; 84134; 84478; 84484; 85018; 85025; 85610; 85730; 87070; 87077; 87081; 87185; 87635; 90732; 92508; 92616; 93005; 93308; 94002; 94003; 94640; 94760; 94799; 97110; 97161; 97530; 97535; 99152; 99153; A6258; C1725; C1751; C1760; C1769; C1874; C1894; C9113; C9803; G0378; J0456; J1100; J1644; J1815; J2001; J2250; J2704; J2930; J3010; J3490; J7030; Q9967

== ENCOUNTER 2022-02-16 17:23 | Emergency (ER) | payer MEDICARE, MEDICAID ==
[~2022-02-16] VITALS: Ht 177.8 cm; Wt 65.9 kg
[~2022-02-16 17:23] MED LIST changes: +ALBU17AE26 IH; -ALBU18HF2 INH; +ALBU2.5V10 NEB; -ALBU2.5V7 INH; -ATOR10TA70 PO; +ATOR40TA72 PO; +CLOP75TA33 PO; +FLUT1BLS4 INH; -LANS30CA37 PO; -LORA10TA7 PO; +METO25TA6 PO; +NITR0.4T48 SL; -PRED10TA23 PO; -UMEC62.5 INH; -rocuronium 10mg/ml inj IV ONE
[2022-02-16] MEDS ORDERED: magnesium 2GM in 50ml NS 50 ML IV ONE (17:35)
[2022-02-16] MEDS ORDERED: albuterol 2.5 MG/3 ML nebule CONTNEB PRN (17:35)
[2022-02-16] MEDS ORDERED: methylPREDNISolone sod succ 125mg/2ml vial IV ONE (17:35)
[2022-02-16 18:32] LABS: BASOPHILS % (AUTO) 0.5 % (0-1); EOSINOPHILS # (AUTO) 0.2 X10'3 (0-0.9); EOSINOPHILS % (AUTO) 2.5 % (0-6); HEMATOCRIT 41.6 % (42.0-52.0); LYMPHOCYTES # (AUTO) 1.7 X10'3 (1.1-4.8); LYMPHOCYTES % (AUTO) 25.4 % (21-51); MEAN CORPUSCULAR HEMOGLOBIN 31.8 PG (27.0-31.0); MEAN CORPUSCULAR HGB CONC 33.6 g/dL (33.0-36.5); MEAN CORPUSCULAR VOLUME 94.6 FL (78-98); MONOCYTES # (AUTO) 0.7 X10'3 (0-0.9); NEUTROPHILS # (AUTO) 4.1 X10'3 (1.8-7.7); NEUTROPHILS % (AUTO) 61.6 % (42-75); PLATELET COUNT 221 X10'3 (140-440); RED CELL DISTRIBUTION WIDTH 13.9 % (11.5-14.5); WHITE BLOOD COUNT 6.7 X10'3 (4.5-11.0)
[2022-02-16 18:48] LABS: ALANINE AMINOTRANSFERASE 42 U/L (12-78); ALBUMIN 3.4 G/DL (3.4-5.0); ALBUMIN/GLOBULIN RATIO 0.8 (1.1-1.5); ALKALINE PHOSPHATASE 92 IU/L (46-116); ANION GAP 9 (8-16); ASPARTATE AMINO TRANSFERASE 32 U/L (10-37); BILIRUBIN,TOTAL 0.4 MG/DL (0.1-1.0); BLOOD UREA NITROGEN 21 MG/DL (7-18); BUN/CREATININE RATIO 22.8 (5.4-32.0); CALCIUM 8.8 MG/DL (8.5-10.1); CHLORIDE 99 MMOL/L (99-107); CREATININE 0.92 MG/DL (0.60-1.10); GLUCOSE 115 MG/DL (70-104); POTASSIUM 4.1 MMOL/L (3.5-5.1); SODIUM 133 MMOL/L (135-145); TOTAL CARBON DIOXIDE 25.2 MMOL/L (24-32); TOTAL PROTEIN 7.6 G/DL (6.4-8.2); eGFR 80 ML/MIN
[2022-02-16] MEDS ORDERED: PRED20TA PO (18:59)
[2022-02-16] MEDS ORDERED: GUAI-422 PO (19:17)
[2022-02-16] MEDS ORDERED: ipratropium/albuterol 3ml nebule NEB ONE (19:20)
[2022-02-16 20:25] VITALS: BP 113/63
== END 2022-02-16 20:00 | disposition home or self-care (01) ==
LOC: ER 17:23
DX: J44.1 Chronic obstructive pulmonary disease with (acute) exacerbation (principal); I10 Essential (primary) hypertension; G89.29 Other chronic pain; Z88.5 Allergy status to narcotic agent; Z79.899 Other long term (current) drug therapy; Z79.1 Long term (current) use of non-steroidal anti-inflammatories (NSAID)
CPT/HCPCS: 36415; 71045; 80053; 83880; 84484; 85025; 93005; 94640; 94644; 96365; 96375; 99285; J2930; J3475; 94760; A7015

== ENCOUNTER 2023-03-28 12:21 | Inpatient (IN) | payer MEDICARE, MEDICAID ==
[2023-03-28] VITALS (7 sets, daily range): BP systolic 118–128; BP diastolic 64–81; PULSE 78–109; RESP 16–24; TEMP 97.6; O2SAT 92–97
[~2023-03-28] VITALS: Ht 177.8 cm; Wt 64.9 kg
[~2023-03-28 12:21] MED LIST changes: -ALBU17AE26 IH; +ALBU18HF2 PO; -ALBU2.5V10 NEB; +ASPI-611 PO; +GUAI600T45 PO; +MULT-1085 PO; -NITR0.4T48 SL
[2023-03-28 13:08] LABS: BASOPHILS % (AUTO) 0.2 % (0-1); EOSINOPHILS % (AUTO) 0.2 % (0-6); HEMATOCRIT 45.1 % (42.0-52.0); HEMOGLOBIN 15.6 g/dl (14.0-17.9); LYMPHOCYTES # (AUTO) 0.6 X10'3 (1.1-4.8); LYMPHOCYTES % (AUTO) 5.3 % (21-51); MEAN CORPUSCULAR HEMOGLOBIN 31.4 PG (27.0-31.0); MEAN CORPUSCULAR HGB CONC 34.6 g/dL (33.0-36.5); MEAN CORPUSCULAR VOLUME 90.8 FL (78-98); MEAN PLATELET VOLUME 7.6 FL (7.4-10.4); MONOCYTES # (AUTO) 0.4 X10'3 (0-0.9); MONOCYTES % (AUTO) 3.7 % (2-12); NEUTROPHILS # (AUTO) 10.9 X10'3 (1.8-7.7); NEUTROPHILS % (AUTO) 90.6 % (42-75); PLATELET COUNT 163 X10'3 (140-440); RED BLOOD COUNT 4.97 X10'6 (4.70-6.10); RED CELL DISTRIBUTION WIDTH 15.5 % (11.5-14.5)
[2023-03-28] MEDS ORDERED: pantoprazole 40 MG vial IV STA (13:13)
[2023-03-28] MEDS ORDERED: albuterol 2.5 MG/3 ML nebule CONTNEB PRN (13:15)
[2023-03-28] MEDS ORDERED: aspirin 325mg tablet PO ONE (13:15)
[2023-03-28] MEDS ORDERED: albuterol 2.5 MG/3 ML nebule NEB ONE (13:15)
[2023-03-28] MEDS ORDERED: ipratropium 0.5 MG/2.5ML nebule IH ONE (13:15)
[2023-03-28] MEDS ORDERED: methylPREDNISolone sod succ 125mg/2ml vial IV ONE (13:15)
[2023-03-28] MEDS ORDERED: guaiFENesin/DM 10ml UD oral syrup PO ONE (13:15)
[2023-03-28] MEDS ORDERED: ipratropium/albuterol 3ml nebule NEB ONE (13:15)
[2023-03-28] MEDS ORDERED: CefTRIAXone/D5W-Rocephin 1gm 50 ML IV ONE (13:20)
[2023-03-28] MEDS ORDERED: azithromycin/NS 500mg/250ml 250 ML IV ONE (13:20)
[2023-03-28 13:21] LABS: ALANINE AMINOTRANSFERASE 35 U/L (12-78); ALBUMIN 3.5 G/DL (3.4-5.0); ALBUMIN/GLOBULIN RATIO 0.8 (1.1-1.5); ALKALINE PHOSPHATASE 107 IU/L (46-116); ANION GAP 6 (8-16); ASPARTATE AMINO TRANSFERASE 33 U/L (10-37); BILIRUBIN,TOTAL 0.6 MG/DL (0.1-1.0); BLOOD UREA NITROGEN 20 MG/DL (7-18); BUN/CREATININE RATIO 21.3 (10.0-20.0); CALCIUM 9.3 MG/DL (8.5-10.1); CHLORIDE 95 MMOL/L (99-107); CREATININE 0.94 MG/DL (0.60-1.10); GLUCOSE 124 MG/DL (70-104); POTASSIUM 4.9 MMOL/L (3.5-5.1); SODIUM 133 MMOL/L (135-145); TOTAL CARBON DIOXIDE 31.7 MMOL/L (24-32); TOTAL PROTEIN 7.9 G/DL (6.4-8.2); eCRCL 61 ML/MIN; eGFR 78 ML/MIN
[2023-03-28 13:28] LABS: PRO BRAIN NATRIURETIC PEPTIDE 202 PG/ML (0-450)
[2023-03-28] MEDS ORDERED: albuterol 2.5 MG/3 ML nebule CONTNEB ONE (13:30)
[2023-03-28 13:55] LABS: ABG BASE EXCESS 1.9 mmol/L (-2.0-2.0); ABG HCO3 27.5 mmol/L (22.0-26.0); ABG OXYGEN SATURATION 97.8 % (94-97); ABG PCO2 (T) 46.2 mmHg (35.0-48.0); ABG PH (T) 7.393 (7.340-7.440); ABG PO2 (T) 107.3 mmHg (75.0-100.0); ALLEN'S TEST POSITIVE; FCOHb 0.5 % (0.0-3.9); FHHb 2.2 % (0.0-5.0); FLOW 5 L/min; FMetHb 0.4 % (0.0-1.5); FO2Hb 96.9 % (94-97); MODE NASAL CANNULA; TOTAL HEMOGLOBIN 16.1 G/dl (14.0-17.9)
[2023-03-28] MEDS ORDERED: magnesium 4gm in 100ml NS 100 ML IV PRN (14:20)
[2023-03-28] MEDS ORDERED: magnesium 2GM in 50ml NS 50 ML IV PRN (14:20)
[2023-03-28] MEDS ORDERED: ondansetron/PF 4mg/2ml inj IV PRN (14:20)
[2023-03-28] MEDS ORDERED: potassium Cl 20 mEq SR tablet PO PRN ×2 (14:20)
[2023-03-28] MEDS ORDERED: albuterol 2.5 MG/3 ML nebule NEB PRN (14:20)
[2023-03-28] MEDS ORDERED: acetaminophen 325mg tablet PO PRN (14:20)
[2023-03-28] MEDS ORDERED: HYDROmorphone/PF 0.2 MG/ML SYRINGE IV PRN (14:20)
[2023-03-28] MEDS ORDERED: potassium Cl 40MEQ/1/2NS 520ml 520 ML IV PRN (14:20)
[2023-03-28] MEDS ORDERED: mag hydrox/Alum hydrox/simeth 30ml oral suspension PO PRN (14:20)
[2023-03-28] MEDS: ipratropium/albuterol 3ml nebule NEB SCH ×3 (15:00→23:14)
[2023-03-28] MEDS ORDERED: traMADol 50MG tablet PO ONE (15:00)
[2023-03-28 15:18] LABS: APTT 29 SECONDS (22-32); INR 1.1 INR; PROTHROMBIN TIME 11.3 SECONDS (9.0-12.0)
[2023-03-28] MEDS ORDERED: metoprolol tartrate 50mg tablet PO ONE (15:20)
[2023-03-28] MEDS: K and/or MAG REPLACEMENT MC SCH (20:00)
[2023-03-28] MEDS: enoxaparin 40mg/0.4ml syringe SQ SCH (20:42)
[2023-03-28] MEDS: docusate sod 100mg capsule PO SCH (20:43)
[2023-03-28] MEDS: metoprolol tartrate 50mg tablet PO SCH (20:44)
[2023-03-28] MEDS: methylPREDNISolone sod succ 125mg/2ml vial IV SCH (20:49)
[2023-03-28] MEDS ORDERED: traMADol 50MG tablet PO PRN (21:10)
[2023-03-28] MEDS: traMADol 50MG tablet PO PRN (21:21)
[2023-03-29] VITALS (20 sets, daily range): BP systolic 95–150; BP diastolic 54–86; PULSE 77–108; RESP 11–22; TEMP 97.3–99.2; O2SAT 92–98
[2023-03-29] MEDS: ipratropium/albuterol 3ml nebule NEB SCH ×6 (03:03→23:01)
[2023-03-29] MEDS: traMADol 50MG tablet PO PRN (05:12)
[2023-03-29 06:25] LABS: BASOPHILS % (AUTO) 0.1 % (0-1); EOSINOPHILS % (AUTO) 0 % (0-6); HEMATOCRIT 40.7 % (42.0-52.0); HEMOGLOBIN 14.1 g/dl (14.0-17.9); LYMPHOCYTES # (AUTO) 0.5 X10'3 (1.1-4.8); LYMPHOCYTES % (AUTO) 7.1 % (21-51); MEAN CORPUSCULAR HGB CONC 34.5 g/dL (33.0-36.5); MEAN CORPUSCULAR VOLUME 89.9 FL (78-98); MEAN PLATELET VOLUME 7.6 FL (7.4-10.4); MONOCYTES # (AUTO) 0.4 X10'3 (0-0.9); MONOCYTES % (AUTO) 5.1 % (2-12); NEUTROPHILS % (AUTO) 87.7 % (42-75); PLATELET COUNT 169 X10'3 (140-440); RED BLOOD COUNT 4.53 X10'6 (4.70-6.10); RED CELL DISTRIBUTION WIDTH 15.5 % (11.5-14.5); WHITE BLOOD COUNT 6.9 X10'3 (4.5-11.0)
[2023-03-29 06:40] LABS: ALANINE AMINOTRANSFERASE 28 U/L (12-78); ALBUMIN 3.1 G/DL (3.4-5.0); ALBUMIN/GLOBULIN RATIO 0.8 (1.1-1.5); ALKALINE PHOSPHATASE 78 IU/L (46-116); ANION GAP 6 (8-16); ASPARTATE AMINO TRANSFERASE 20 U/L (10-37); BILIRUBIN,TOTAL 0.4 MG/DL (0.1-1.0); BLOOD UREA NITROGEN 17 MG/DL (7-18); BUN/CREATININE RATIO 14.4 (10.0-20.0); CALCIUM 9.1 MG/DL (8.5-10.1); CHLORIDE 98 MMOL/L (99-107); CREATININE 1.18 MG/DL (0.60-1.10); GLUCOSE 195 MG/DL (70-104); MAGNESIUM 1.5 MG/DL (1.5-2.4); SODIUM 134 MMOL/L (135-145); TOTAL CARBON DIOXIDE 30.1 MMOL/L (24-32); TOTAL PROTEIN 7.1 G/DL (6.4-8.2); eCRCL 49 ML/MIN; eGFR 60 ML/MIN
[2023-03-29] MEDS: CefTRIAXone/D5W-Rocephin 1gm 50 ML IV SCH (07:34)
[2023-03-29] MEDS: metoprolol tartrate 50mg tablet PO SCH (07:36)
[2023-03-29] MEDS: docusate sod 100mg capsule PO SCH ×2 (07:36→20:05)
[2023-03-29] MEDS: montelukast 10mg tablet PO SCH (08:00)
[2023-03-29] MEDS: K and/or MAG REPLACEMENT MC SCH ×2 (08:00→20:00)
[2023-03-29] MEDS ORDERED: clopidogrel 75mg tablet PO SCH (08:00)
[2023-03-29] MEDS: methylPREDNISolone sod succ 125mg/2ml vial IV SCH ×3 (08:50→20:06)
[2023-03-29] MEDS ORDERED: albuterol 2.5 MG/3 ML nebule NEB PRN (16:30)
[2023-03-29] MEDS ORDERED: traMADol 50MG tablet PO PRN (16:30)
[2023-03-29] MEDS: enoxaparin 40mg/0.4ml syringe SQ SCH (20:07)
[2023-03-29] MEDS: fluticasone nasal spray 16GM bottle NS SCH (20:08)
[2023-03-29] MEDS: metoprolol tartrate 25mg tablet PO SCH (20:42)
[2023-03-29] MEDS: guaiFENesin ER 600mg tablet PO SCH (21:05)
[2023-03-30] VITALS (20 sets, daily range): BP systolic 107–139; BP diastolic 64–87; PULSE 88–106; RESP 12–20; TEMP 97.3–98.6; O2SAT 93–99
[2023-03-30] MEDS: traMADol 50MG tablet PO PRN ×4 (01:08→19:25)
[2023-03-30] MEDS: ipratropium/albuterol 3ml nebule NEB SCH ×6 (03:35→23:45)
[2023-03-30 07:17] LABS: BASOPHILS % (AUTO) 0 % (0-1); EOSINOPHILS % (AUTO) 0 % (0-6); HEMOGLOBIN 13.9 g/dl (14.0-17.9); LYMPHOCYTES # (AUTO) 0.7 X10'3 (1.1-4.8); LYMPHOCYTES % (AUTO) 3.9 % (21-51); MEAN CORPUSCULAR HEMOGLOBIN 30.7 PG (27.0-31.0); MEAN CORPUSCULAR HGB CONC 33.8 g/dL (33.0-36.5); MEAN CORPUSCULAR VOLUME 90.7 FL (78-98); MEAN PLATELET VOLUME 7.8 FL (7.4-10.4); MONOCYTES % (AUTO) 5.1 % (2-12); NEUTROPHILS # (AUTO) 17.3 X10'3 (1.8-7.7); PLATELET COUNT 181 X10'3 (140-440); RED BLOOD COUNT 4.52 X10'6 (4.70-6.10); RED CELL DISTRIBUTION WIDTH 15.7 % (11.5-14.5)
[2023-03-30 07:30] LABS: ALANINE AMINOTRANSFERASE 29 U/L (12-78); ALBUMIN/GLOBULIN RATIO 0.8 (1.1-1.5); ALKALINE PHOSPHATASE 76 IU/L (46-116); ANION GAP 7 (8-16); ASPARTATE AMINO TRANSFERASE 24 U/L (10-37); BILIRUBIN,TOTAL 0.3 MG/DL (0.1-1.0); BLOOD UREA NITROGEN 17 MG/DL (7-18); BUN/CREATININE RATIO 19.5 (10.0-20.0); CHLORIDE 100 MMOL/L (99-107); CREATININE 0.87 MG/DL (0.60-1.10); GLUCOSE 118 MG/DL (70-104); MAGNESIUM 1.7 MG/DL (1.5-2.4); POTASSIUM 4.2 MMOL/L (3.5-5.1); SODIUM 137 MMOL/L (135-145); TOTAL CARBON DIOXIDE 30.5 MMOL/L (24-32); TOTAL PROTEIN 6.9 G/DL (6.4-8.2); eCRCL 66 ML/MIN; eGFR 85 ML/MIN
[2023-03-30] MEDS: montelukast 10mg tablet PO SCH (07:33)
[2023-03-30] MEDS: CefTRIAXone/D5W-Rocephin 1gm 50 ML IV SCH (07:33)
[2023-03-30] MEDS: multivitamins, therapeutics tablet PO SCH (07:33)
[2023-03-30] MEDS: methylPREDNISolone sod succ 125mg/2ml vial IV SCH ×3 (07:33→20:38)
[2023-03-30] MEDS: aspirin 81mg, enteric-coated 1 TAB TABLET.DR PO SCH (07:33)
[2023-03-30] MEDS: docusate sod 100mg capsule PO SCH ×2 (07:34→20:35)
[2023-03-30] MEDS: levoTHYROXINE 25mcg tablet PO SCH (07:34)
[2023-03-30] MEDS: metoprolol tartrate 25mg tablet PO SCH ×2 (07:34→20:37)
[2023-03-30] MEDS: fluticasone nasal spray 16GM bottle NS SCH ×2 (07:37→20:44)
[2023-03-30] MEDS: guaiFENesin ER 600mg tablet PO SCH ×2 (07:37→20:37)
[2023-03-30] MEDS: K and/or MAG REPLACEMENT MC SCH ×2 (07:41→20:00)
[2023-03-30] MEDS: Fluticasone/Umeclidin/Vilanter (Trelegy Ellipta 100-62.5-25) PO SCH (07:42)
[2023-03-30 07:55] LABS: CALCIUM 8.9 MG/DL (8.5-10.1)
[2023-03-30] MEDS: enoxaparin 40mg/0.4ml syringe SQ SCH (20:38)
[2023-03-31] VITALS (18 sets, daily range): BP systolic 132–157; BP diastolic 83–93; PULSE 79–96; RESP 15–20; TEMP 97.2–98.3; O2SAT 91–98
[2023-03-31] MEDS: traMADol 50MG tablet PO PRN ×4 (01:35→20:09)
[2023-03-31] MEDS: ipratropium/albuterol 3ml nebule NEB SCH ×6 (03:14→23:00)
[2023-03-31 07:39] LABS: ALANINE AMINOTRANSFERASE 27 U/L (12-78); ALBUMIN 3.1 G/DL (3.4-5.0); ALBUMIN/GLOBULIN RATIO 0.8 (1.1-1.5); ALKALINE PHOSPHATASE 77 IU/L (46-116); ANION GAP 3 (8-16); ASPARTATE AMINO TRANSFERASE 26 U/L (10-37); BILIRUBIN,TOTAL 0.3 MG/DL (0.1-1.0); BLOOD UREA NITROGEN 20 MG/DL (7-18); BUN/CREATININE RATIO 22.2 (10.0-20.0); CALCIUM 9.3 MG/DL (8.5-10.1); CHLORIDE 99 MMOL/L (99-107); GLUCOSE 95 MG/DL (70-104); MAGNESIUM 1.7 MG/DL (1.5-2.4); POTASSIUM 4.7 MMOL/L (3.5-5.1); SODIUM 133 MMOL/L (135-145); TOTAL CARBON DIOXIDE 30.7 MMOL/L (24-32); TOTAL PROTEIN 7.1 G/DL (6.4-8.2); eCRCL 64 ML/MIN; eGFR 82 ML/MIN
[2023-03-31 07:42] LABS: BASOPHILS % (AUTO) 0 % (0-1); EOSINOPHILS % (AUTO) 0 % (0-6); HEMATOCRIT 42.5 % (42.0-52.0); HEMOGLOBIN 14.5 g/dl (14.0-17.9); LYMPHOCYTES # (AUTO) 0.8 X10'3 (1.1-4.8); LYMPHOCYTES % (AUTO) 5.1 % (21-51); MEAN CORPUSCULAR HEMOGLOBIN 31.1 PG (27.0-31.0); MEAN CORPUSCULAR HGB CONC 34.2 g/dL (33.0-36.5); MEAN CORPUSCULAR VOLUME 90.8 FL (78-98); MEAN PLATELET VOLUME 7.9 FL (7.4-10.4); MONOCYTES # (AUTO) 0.8 X10'3 (0-0.9); NEUTROPHILS # (AUTO) 14.1 X10'3 (1.8-7.7); NEUTROPHILS % (AUTO) 89.9 % (42-75); PLATELET COUNT 201 X10'3 (140-440); RED BLOOD COUNT 4.68 X10'6 (4.70-6.10); RED CELL DISTRIBUTION WIDTH 16.2 % (11.5-14.5); WHITE BLOOD COUNT 15.7 X10'3 (4.5-11.0)
[2023-03-31] MEDS: K and/or MAG REPLACEMENT MC SCH ×2 (08:00→20:00)
[2023-03-31] MEDS: Fluticasone/Umeclidin/Vilanter (Trelegy Ellipta 100-62.5-25) PO SCH (08:00)
[2023-03-31] MEDS: fluticasone nasal spray 16GM bottle NS SCH ×2 (08:10→20:26)
[2023-03-31] MEDS: multivitamins, therapeutics tablet PO SCH (08:10)
[2023-03-31] MEDS: docusate sod 100mg capsule PO SCH ×2 (08:10→20:07)
[2023-03-31] MEDS: aspirin 81mg, enteric-coated 1 TAB TABLET.DR PO SCH (08:11)
[2023-03-31] MEDS: montelukast 10mg tablet PO SCH (08:11)
[2023-03-31] MEDS: metoprolol tartrate 25mg tablet PO SCH ×2 (08:11→20:08)
[2023-03-31] MEDS: levoTHYROXINE 25mcg tablet PO SCH (08:12)
[2023-03-31] MEDS: CefTRIAXone/D5W-Rocephin 1gm 50 ML IV SCH (08:12)
[2023-03-31] MEDS: methylPREDNISolone sod succ 125mg/2ml vial IV SCH ×3 (08:13→20:07)
[2023-03-31] MEDS: guaiFENesin ER 600mg tablet PO SCH ×2 (08:19→20:09)
[2023-03-31] MEDS: enoxaparin 40mg/0.4ml syringe SQ SCH (20:07)
[2023-03-31] MEDS: HYDROmorphone inj. 0.5 MG/0.5 ML DISP.SYRIN IV PRN (20:19)
[2023-04-01] VITALS (17 sets, daily range): BP systolic 133–160; BP diastolic 82–95; PULSE 7–87; RESP 10–18; TEMP 97–97.8; O2SAT 94–99
[2023-04-01] MEDS: HYDROmorphone inj. 0.5 MG/0.5 ML DISP.SYRIN IV PRN ×2 (03:10→20:18)
[2023-04-01] MEDS: ipratropium/albuterol 3ml nebule NEB SCH ×5 (03:10→19:38)
[2023-04-01 06:07] LABS: BASOPHILS % (AUTO) 0.1 % (0-1); EOSINOPHILS % (AUTO) 0 % (0-6); HEMATOCRIT 42.5 % (42.0-52.0); HEMOGLOBIN 14.5 g/dl (14.0-17.9); LYMPHOCYTES # (AUTO) 1.2 X10'3 (1.1-4.8); LYMPHOCYTES % (AUTO) 10.4 % (21-51); MEAN CORPUSCULAR HEMOGLOBIN 31.3 PG (27.0-31.0); MEAN CORPUSCULAR HGB CONC 34.1 g/dL (33.0-36.5); MEAN CORPUSCULAR VOLUME 91.7 FL (78-98); MEAN PLATELET VOLUME 7.5 FL (7.4-10.4); MONOCYTES % (AUTO) 8.2 % (2-12); NEUTROPHILS # (AUTO) 9.5 X10'3 (1.8-7.7); NEUTROPHILS % (AUTO) 81.3 % (42-75); PLATELET COUNT 194 X10'3 (140-440); RED BLOOD COUNT 4.64 X10'6 (4.70-6.10); RED CELL DISTRIBUTION WIDTH 15.9 % (11.5-14.5); WHITE BLOOD COUNT 11.6 X10'3 (4.5-11.0)
[2023-04-01 06:29] LABS: ALANINE AMINOTRANSFERASE 41 U/L (12-78); ALBUMIN/GLOBULIN RATIO 0.8 (1.1-1.5); ALKALINE PHOSPHATASE 75 IU/L (46-116); ANION GAP 1 (8-16); ASPARTATE AMINO TRANSFERASE 31 U/L (10-37); BILIRUBIN,TOTAL 0.3 MG/DL (0.1-1.0); BLOOD UREA NITROGEN 24 MG/DL (7-18); BUN/CREATININE RATIO 24.7 (10.0-20.0); CALCIUM 8.9 MG/DL (8.5-10.1); CHLORIDE 99 MMOL/L (99-107); CREATININE 0.97 MG/DL (0.60-1.10); GLUCOSE 70 MG/DL (70-104); MAGNESIUM 1.8 MG/DL (1.5-2.4); POTASSIUM 4.3 MMOL/L (3.5-5.1); SODIUM 134 MMOL/L (135-145); THYROID STIMULATING HORMONE 1.69 ulU/ml (0.34-4.50); TOTAL CARBON DIOXIDE 33.9 MMOL/L (24-32); TOTAL PROTEIN 6.8 G/DL (6.4-8.2); eCRCL 59 ML/MIN; eGFR 75 ML/MIN
[2023-04-01] MEDS: K and/or MAG REPLACEMENT MC SCH ×2 (08:00→20:00)
[2023-04-01] MEDS: Fluticasone/Umeclidin/Vilanter (Trelegy Ellipta 100-62.5-25) PO SCH (08:00)
[2023-04-01] MEDS: multivitamins, therapeutics tablet PO SCH (08:07)
[2023-04-01] MEDS: levoTHYROXINE 25mcg tablet PO SCH (08:07)
[2023-04-01] MEDS: traMADol 50MG tablet PO PRN ×2 (08:07→14:31)
[2023-04-01] MEDS: docusate sod 100mg capsule PO SCH ×2 (08:07→20:04)
[2023-04-01] MEDS: montelukast 10mg tablet PO SCH (08:08)
[2023-04-01] MEDS: fluticasone nasal spray 16GM bottle NS SCH ×2 (08:08→20:04)
[2023-04-01] MEDS: metoprolol tartrate 25mg tablet PO SCH ×2 (08:08→20:04)
[2023-04-01] MEDS: CefTRIAXone/D5W-Rocephin 1gm 50 ML IV SCH (08:09)
[2023-04-01] MEDS: aspirin 81mg, enteric-coated 1 TAB TABLET.DR PO SCH (08:09)
[2023-04-01] MEDS: methylPREDNISolone sod succ 125mg/2ml vial IV SCH (08:10)
[2023-04-01] MEDS ORDERED: potassium Cl 40MEQ/1/2NS 520ml 520 ML IV PRN (09:45)
[2023-04-01] MEDS ORDERED: magnesium 2GM in 50ml NS 50 ML IV PRN (09:45)
[2023-04-01] MEDS ORDERED: magnesium Cl slow-release 64mg tablet PO PRN (09:45)
[2023-04-01] MEDS ORDERED: magnesium 4gm in 100ml NS 100 ML IV PRN (09:45)
[2023-04-01] MEDS ORDERED: potassium Cl 20 mEq SR tablet PO PRN ×2 (09:45)
[2023-04-01] MEDS: guaiFENesin ER 600mg tablet PO SCH ×2 (10:10→20:03)
[2023-04-01] MEDS: methylPREDNISolone sod succ/PF 40mg inj. IV SCH ×2 (13:10→20:03)
[2023-04-01] MEDS: enoxaparin 40mg/0.4ml syringe SQ SCH (20:04)
[2023-04-02] VITALS (14 sets, daily range): BP systolic 135–157; BP diastolic 70–93; PULSE 55–86; RESP 14–18; TEMP 97.5–98.2; O2SAT 95–97
[2023-04-02] MEDS: ipratropium/albuterol 3ml nebule NEB SCH ×5 (00:04→14:53)
[2023-04-02] MEDS: HYDROmorphone inj. 0.5 MG/0.5 ML DISP.SYRIN IV PRN (00:54)
[2023-04-02 07:29] LABS: BASOPHILS % (AUTO) 0 % (0-1); EOSINOPHILS % (AUTO) 0 % (0-6); HEMATOCRIT 44.6 % (42.0-52.0); HEMOGLOBIN 15.2 g/dl (14.0-17.9); LYMPHOCYTES # (AUTO) 0.9 X10'3 (1.1-4.8); LYMPHOCYTES % (AUTO) 9.7 % (21-51); MEAN CORPUSCULAR HEMOGLOBIN 31.1 PG (27.0-31.0); MEAN CORPUSCULAR HGB CONC 34.2 g/dL (33.0-36.5); MEAN CORPUSCULAR VOLUME 91.1 FL (78-98); MEAN PLATELET VOLUME 7.6 FL (7.4-10.4); MONOCYTES # (AUTO) 0.6 X10'3 (0-0.9); MONOCYTES % (AUTO) 6.4 % (2-12); NEUTROPHILS # (AUTO) 7.9 X10'3 (1.8-7.7); NEUTROPHILS % (AUTO) 83.9 % (42-75); PLATELET COUNT 198 X10'3 (140-440); RED CELL DISTRIBUTION WIDTH 15.5 % (11.5-14.5); WHITE BLOOD COUNT 9.4 X10'3 (4.5-11.0)
[2023-04-02] MEDS: CefTRIAXone/D5W-Rocephin 1gm 50 ML IV SCH (07:50)
[2023-04-02] MEDS: fluticasone nasal spray 16GM bottle NS SCH (07:50)
[2023-04-02] MEDS: traMADol 50MG tablet PO PRN ×2 (07:51→13:06)
[2023-04-02] MEDS: methylPREDNISolone sod succ/PF 40mg inj. IV SCH ×2 (07:51→13:06)
[2023-04-02] MEDS: docusate sod 100mg capsule PO SCH (07:51)
[2023-04-02] MEDS: metoprolol tartrate 25mg tablet PO SCH (07:52)
[2023-04-02] MEDS: multivitamins, therapeutics tablet PO SCH (07:52)
[2023-04-02] MEDS: aspirin 81mg, enteric-coated 1 TAB TABLET.DR PO SCH (07:52)
[2023-04-02] MEDS: montelukast 10mg tablet PO SCH (07:52)
[2023-04-02] MEDS: levoTHYROXINE 25mcg tablet PO SCH (07:53)
[2023-04-02 07:55] LABS: ALANINE AMINOTRANSFERASE 53 U/L (12-78); ALBUMIN/GLOBULIN RATIO 0.7 (1.1-1.5); ALKALINE PHOSPHATASE 76 IU/L (46-116); ANION GAP 5 (8-16); ASPARTATE AMINO TRANSFERASE 28 U/L (10-37); BILIRUBIN,TOTAL 0.4 MG/DL (0.1-1.0); BLOOD UREA NITROGEN 25 MG/DL (7-18); BUN/CREATININE RATIO 27.2 (10.0-20.0); CALCIUM 9.2 MG/DL (8.5-10.1); CHLORIDE 98 MMOL/L (99-107); CREATININE 0.92 MG/DL (0.60-1.10); GLUCOSE 99 MG/DL (70-104); MAGNESIUM 1.9 MG/DL (1.5-2.4); POTASSIUM 4.6 MMOL/L (3.5-5.1); SODIUM 135 MMOL/L (135-145); TOTAL CARBON DIOXIDE 31.9 MMOL/L (24-32); TOTAL PROTEIN 7.1 G/DL (6.4-8.2); eCRCL 63 ML/MIN; eGFR 80 ML/MIN
[2023-04-02] MEDS: K and/or MAG REPLACEMENT MC SCH (08:00)
[2023-04-02] MEDS: guaiFENesin ER 600mg tablet PO SCH (08:00)
[2023-04-02] MEDS: Fluticasone/Umeclidin/Vilanter (Trelegy Ellipta 100-62.5-25) PO SCH (08:00)
[2023-04-02] MEDS ORDERED: MONT-40 PO (11:16)
[2023-04-02] MEDS ORDERED: PRED20TA PO (11:16)
== END 2023-04-02 16:37 | disposition home or self-care (01) | DRG 189 ==
LOC: ER 12:22 → ED HOLD 14:28 → EDBEDREQ 18:05 → PCU 3S 19:20
PROVIDERS: ADMIT Family Medicine; ATTEND Family Medicine
DX: J96.20 Acute and chronic respiratory failure, unspecified whether with hypoxia or hypercapnia (principal); J44.1 Chronic obstructive pulmonary disease with (acute) exacerbation; E87.1 Hypo-osmolality and hyponatremia; E03.9 Hypothyroidism, unspecified; E78.5 Hyperlipidemia, unspecified; I10 Essential (primary) hypertension; F41.9 Anxiety disorder, unspecified; F32.A Depression, unspecified; Z20.822 Contact with and (suspected) exposure to COVID-19; I25.10 Atherosclerotic heart disease of native coronary artery without angina pectoris; G89.4 Chronic pain syndrome; I25.2 Old myocardial infarction; Z79.899 Other long term (current) drug therapy; Z95.5 Presence of coronary angioplasty implant and graft; Z82.49 Family history of ischemic heart disease and other diseases of the circulatory system; Z98.42 Cataract extraction status, left eye; Z99.81 Dependence on supplemental oxygen; Z86.19 Personal history of other infectious and parasitic diseases; Z87.01 Personal history of pneumonia (recurrent); Z88.5 Allergy status to narcotic agent; Z79.82 Long term (current) use of aspirin; Z87.891 Personal history of nicotine dependence
CPT/HCPCS: 36415; 36600; 71045; 80053; 82803; 83605; 83735; 83880; 84443; 84484; 85018; 85025; 85610; 85730; 87040; 87081; 87502; 87503; 87811; 94640; 94760; 97116; 97161; 97530; 99285; A4615; A7015; C9113; G0378; J0456; J0696; J1170; J1650; J2920; J2930; J7030; J7040

== ENCOUNTER 2023-06-25 09:13 | Inpatient (IN) | payer MEDICARE, MEDICAID ==
[~2023-06-25] VITALS: Ht 177.8 cm; Wt 67.0 kg
[~2023-06-25 09:13] MED LIST changes: -ATOR40TA72 PO; -CLOP75TA33 PO; +FLUT1BLS16 INH; -FLUT1BLS4 INH; +LACT1CAP26 PO; +MONT-40 PO; +OFLO5DRO6 EACHEYE; +PREDNISOLONE
[2023-06-25 09:48] LABS: BASOPHILS % (AUTO) 0.4 % (0-1); EOSINOPHILS # (AUTO) 0.1 X10'3 (0-0.9); EOSINOPHILS % (AUTO) 0.7 % (0-6); HEMATOCRIT 45.2 % (42.0-52.0); HEMOGLOBIN 15.4 g/dl (14.0-17.9); LYMPHOCYTES # (AUTO) 1.7 X10'3 (1.1-4.8); LYMPHOCYTES % (AUTO) 16.6 % (21-51); MEAN CORPUSCULAR HEMOGLOBIN 32.3 PG (27.0-31.0); MEAN PLATELET VOLUME 7.4 FL (7.4-10.4); MONOCYTES # (AUTO) 1.1 X10'3 (0-0.9); MONOCYTES % (AUTO) 10.3 % (2-12); NEUTROPHILS # (AUTO) 7.4 X10'3 (1.8-7.7); PLATELET COUNT 188 X10'3 (140-440); RED BLOOD COUNT 4.76 X10'6 (4.70-6.10); RED CELL DISTRIBUTION WIDTH 15.1 % (11.5-14.5); WHITE BLOOD COUNT 10.3 X10'3 (4.5-11.0)
[2023-06-25 10:06] LABS: ALBUMIN 3.4 G/DL (3.4-5.0); ANION GAP 7 (8-16); BLOOD UREA NITROGEN 22 MG/DL (7-18); BUN/CREATININE RATIO 21.4 (10.0-20.0); CALCIUM 8.8 MG/DL (8.5-10.1); CHLORIDE 102 MMOL/L (99-107); CREATININE 1.03 MG/DL (0.60-1.10); GLUCOSE 137 MG/DL (70-104); POTASSIUM 4.1 MMOL/L (3.5-5.1); PRO BRAIN NATRIURETIC PEPTIDE 349 PG/ML (0-450); SODIUM 140 MMOL/L (135-145); TOTAL CARBON DIOXIDE 30.6 MMOL/L (24-32); eCRCL 57 ML/MIN; eGFR 70 ML/MIN
[2023-06-25] MEDS: albuterol 2.5 MG/3 ML nebule NEB ONE (10:20)
[2023-06-25 10:21] VITALS: PULSE 72; RESP 12; O2SAT 99
[2023-06-25] MEDS: methylPREDNISolone sod succ 125mg/2ml vial IV ONE (10:23)
[2023-06-25] MEDS: CefTRIAXone 2gm/D5W 50ml BAG 50 ML IV ONE (10:24)
[2023-06-25] MEDS: normal saline 1000ML IV soln IVB ONE (10:24)
[2023-06-25 10:28] LABS: D-DIMER 1.49 MG/L FEU (0-0.50)
[2023-06-25 10:39] VITALS: PULSE 73; RESP 12; O2SAT 100
[2023-06-25 10:53] LABS: ALANINE AMINOTRANSFERASE 31 U/L (12-78); ALBUMIN 3.3 G/DL (3.4-5.0); ALBUMIN/GLOBULIN RATIO 0.9 (1.1-1.5); ALKALINE PHOSPHATASE 67 IU/L (46-116); ASPARTATE AMINO TRANSFERASE 25 U/L (10-37); BILIRUBIN,DIRECT 0.2 MG/DL (0-0.3); BILIRUBIN,TOTAL 0.6 MG/DL (0.1-1.0); TOTAL PROTEIN 6.8 G/DL (6.4-8.2)
[2023-06-25] MEDS: azithromycin/NS 500mg/250ml 250 ML IV ONE (10:56)
[2023-06-25] MEDS: normal saline 500ml IV soln 500 ML IV SCH (10:56)
[2023-06-25] MEDS: traMADol 50MG tablet PO ONE (12:47)
[2023-06-25] MEDS ORDERED: iohexol 350MG/ML 100ml bottle IV ONE (12:54)
[2023-06-25] MEDS ORDERED: heparin 10,000 units/1 ML INJ IV PRN ×2 (14:00→14:50)
[2023-06-25] MEDS: heparin 10,000 units/1 ML INJ IV ONE ×3 (14:05→15:36)
[2023-06-25] MEDS ORDERED: morphine 2 MG/ML inj. syringe IV PRN ×2 (14:50)
[2023-06-25] MEDS ORDERED: magnesium Cl slow-release 64mg tablet PO PRN (14:50)
[2023-06-25] MEDS ORDERED: potassium Cl 40MEQ/1/2NS 520ml 520 ML IV PRN (14:50)
[2023-06-25] MEDS ORDERED: magnesium 2GM in 50ml NS 50 ML IV PRN (14:50)
[2023-06-25] MEDS ORDERED: ondansetron/PF 4mg/2ml inj IV PRN (14:50)
[2023-06-25] MEDS ORDERED: acetaminophen 325mg tablet PO PRN (14:50)
[2023-06-25] MEDS ORDERED: mag hydrox/Alum hydrox/simeth 30ml oral suspension PO PRN (14:50)
[2023-06-25] MEDS ORDERED: magnesium hydroxide 30ml (MOM) UD suspension PO PRN (14:50)
[2023-06-25] MEDS ORDERED: heparin 25,000 UNIT/250ml bag 250 ML IV PRN (14:50)
[2023-06-25] MEDS ORDERED: magnesium 4gm in 100ml NS 100 ML IV PRN (14:50)
[2023-06-25] MEDS: heparin 25,000 UNIT/250ml bag 250 ML IV PRN (15:19)
[2023-06-25] MEDS: normal saline 1000ml 1,000 ML IV SCH (15:37)
[2023-06-25 19:35] VITALS: BP 143/101; PULSE 97; RESP 22; TEMP 97.1; O2SAT 98
[2023-06-25] MEDS: K and/or MAG REPLACEMENT MC SCH (20:00)
[2023-06-25] MEDS ORDERED: lactobacillus rhamnosus 10,000 MMU CELLS/CAPSULE PO SCH (20:00)
[2023-06-25 20:30] VITALS: RESP 16; O2SAT 96
[2023-06-25] MEDS: fluticasone nasal spray 16GM bottle NS SCH (20:33)
[2023-06-25] MEDS: traMADol 50MG tablet PO PRN (20:35)
[2023-06-25] MEDS: metoprolol tartrate 25mg tablet PO SCH (20:36)
[2023-06-25] MEDS: docusate sod 100mg capsule PO SCH (20:36)
[2023-06-25] MEDS: guaiFENesin ER 600mg tablet PO SCH (20:36)
[2023-06-25] MEDS ORDERED: ofloxacin 0.33% 5ml ophthalmic drops EACHEYE SCH (21:00)
[2023-06-25 23:00] VITALS: BP 105/62; PULSE 80; RESP 14; TEMP 97.2; O2SAT 96
[2023-06-26] VITALS (7 sets, daily range): BP systolic 107–163; BP diastolic 67–87; PULSE 64–82; RESP 16–22; TEMP 97–98.7; O2SAT 95–99
[2023-06-26] MEDS: levoTHYROXINE 25mcg tablet PO SCH (03:39)
[2023-06-26 07:00] LABS: BASOPHILS % (AUTO) 0 % (0-1); EOSINOPHILS % (AUTO) 0 % (0-6); HEMATOCRIT 42.3 % (42.0-52.0); HEMOGLOBIN 14.5 g/dl (14.0-17.9); LYMPHOCYTES # (AUTO) 1.4 X10'3 (1.1-4.8); LYMPHOCYTES % (AUTO) 14.1 % (21-51); MEAN CORPUSCULAR HEMOGLOBIN 32.6 PG (27.0-31.0); MEAN CORPUSCULAR HGB CONC 34.3 g/dL (33.0-36.5); MEAN CORPUSCULAR VOLUME 95.2 FL (78-98); MEAN PLATELET VOLUME 8.1 FL (7.4-10.4); MONOCYTES # (AUTO) 0.9 X10'3 (0-0.9); MONOCYTES % (AUTO) 8.5 % (2-12); NEUTROPHILS # (AUTO) 7.9 X10'3 (1.8-7.7); NEUTROPHILS % (AUTO) 77.4 % (42-75); PLATELET COUNT 178 X10'3 (140-440); RED BLOOD COUNT 4.44 X10'6 (4.70-6.10); RED CELL DISTRIBUTION WIDTH 14.9 % (11.5-14.5); WHITE BLOOD COUNT 10.2 X10'3 (4.5-11.0)
[2023-06-26 07:50] LABS: ALANINE AMINOTRANSFERASE 27 U/L (12-78); ALBUMIN 3.1 G/DL (3.4-5.0); ALBUMIN/GLOBULIN RATIO 0.9 (1.1-1.5); ALKALINE PHOSPHATASE 57 IU/L (46-116); ANION GAP 9 (8-16); ASPARTATE AMINO TRANSFERASE 22 U/L (10-37); BILIRUBIN,TOTAL 0.5 MG/DL (0.1-1.0); BLOOD UREA NITROGEN 16 MG/DL (7-18); BUN/CREATININE RATIO 20.3 (10.0-20.0); CALCIUM 8.9 MG/DL (8.5-10.1); CHLORIDE 105 MMOL/L (99-107); CREATININE 0.79 MG/DL (0.60-1.10); GLUCOSE 110 MG/DL (70-104); MAGNESIUM 1.7 MG/DL (1.5-2.4); POTASSIUM 4.1 MMOL/L (3.5-5.1); SODIUM 141 MMOL/L (135-145); TOTAL CARBON DIOXIDE 27.5 MMOL/L (24-32); TOTAL PROTEIN 6.5 G/DL (6.4-8.2); eCRCL 74 ML/MIN; eGFR > 90 ML/MIN
[2023-06-26] MEDS ORDERED: Fluticasone/Umeclidin/Vilanter (Trelegy Ellipta 200-62.5-25) IH SCH (08:00)
[2023-06-26] MEDS: lactobacillus rhamnosus 10,000 MMU CELLS/CAPSULE PO SCH (08:19)
[2023-06-26] MEDS: montelukast 10mg tablet PO SCH (08:20)
[2023-06-26] MEDS: multivitamins, therapeutics tablet PO SCH (08:20)
[2023-06-27] VITALS (7 sets, daily range): BP systolic 109–140; BP diastolic 66–89; PULSE 64–79; RESP 16–18; TEMP 97.8–98.1; O2SAT 96–100
[2023-06-27 01:51] LABS: BASOPHILS # (AUTO) 0.1 X10'3 (0-0.2); BASOPHILS % (AUTO) 0.6 % (0-1); EOSINOPHILS # (AUTO) 0.1 X10'3 (0-0.9); EOSINOPHILS % (AUTO) 0.9 % (0-6); HEMATOCRIT 40.5 % (42.0-52.0); HEMOGLOBIN 14.3 g/dl (14.0-17.9); LYMPHOCYTES # (AUTO) 2.2 X10'3 (1.1-4.8); LYMPHOCYTES % (AUTO) 25.3 % (21-51); MEAN CORPUSCULAR HGB CONC 35.2 g/dL (33.0-36.5); MEAN CORPUSCULAR VOLUME 93.7 FL (78-98); MEAN PLATELET VOLUME 7.4 FL (7.4-10.4); MONOCYTES # (AUTO) 0.8 X10'3 (0-0.9); MONOCYTES % (AUTO) 9.4 % (2-12); NEUTROPHILS # (AUTO) 5.6 X10'3 (1.8-7.7); NEUTROPHILS % (AUTO) 63.8 % (42-75); PLATELET COUNT 152 X10'3 (140-440); RED BLOOD COUNT 4.32 X10'6 (4.70-6.10); RED CELL DISTRIBUTION WIDTH 14.9 % (11.5-14.5); WHITE BLOOD COUNT 8.7 X10'3 (4.5-11.0)
[2023-06-27 02:02] LABS: ALANINE AMINOTRANSFERASE 27 U/L (12-78); ALBUMIN 2.9 G/DL (3.4-5.0); ALBUMIN/GLOBULIN RATIO 0.9 (1.1-1.5); ALKALINE PHOSPHATASE 62 IU/L (46-116); ANION GAP 5 (8-16); ASPARTATE AMINO TRANSFERASE 20 U/L (10-37); BILIRUBIN,TOTAL 0.4 MG/DL (0.1-1.0); BLOOD UREA NITROGEN 24 MG/DL (7-18); BUN/CREATININE RATIO 20.3 (10.0-20.0); CALCIUM 8.3 MG/DL (8.5-10.1); CHLORIDE 105 MMOL/L (99-107); CREATININE 1.18 MG/DL (0.60-1.10); GLUCOSE 80 MG/DL (70-104); MAGNESIUM 1.8 MG/DL (1.5-2.4); POTASSIUM 4.2 MMOL/L (3.5-5.1); SODIUM 141 MMOL/L (135-145); TOTAL CARBON DIOXIDE 30.6 MMOL/L (24-32); TOTAL PROTEIN 6.2 G/DL (6.4-8.2); eCRCL 50 ML/MIN; eGFR 60 ML/MIN
[2023-06-27] MEDS: apixaban 5mg tablet PO SCH (08:00)
[2023-06-27] MEDS: atorvastatin 20mg tablet PO SCH (09:21)
[2023-06-27] MEDS ORDERED: ATOR20TA66 PO (13:46)
[2023-06-27] MEDS: albuterol 2.5 MG/3 ML nebule NEB PRN (15:20)
[2023-06-27] MEDS ORDERED: APIX5TAB3 PO (16:46)
[2023-07-04] MEDS ORDERED: apixaban 5mg tablet PO SCH (08:00)
== END 2023-06-27 18:37 | disposition home or self-care (01) | DRG 175 ==
LOC: ER 09:14 → UNDOADMIN 15:04 → ED HOLD 15:04 → EDBEDREQ 18:03 → PCU 3S 19:29
PROVIDERS: ADMIT Family Medicine; ATTEND Family Medicine
PROC: B32T1ZZ Computerized Tomography (CT Scan) of Left Pulmonary Artery using Low Osmolar Contrast (ICD-10-PCS; principal; 2023-06-25)
PROC: B3201ZZ Computerized Tomography (CT Scan) of Thoracic Aorta using Low Osmolar Contrast (ICD-10-PCS; 2023-06-25)
PROC: B32S1ZZ Computerized Tomography (CT Scan) of Right Pulmonary Artery using Low Osmolar Contrast (ICD-10-PCS; 2023-06-25)
DX: I26.99 Other pulmonary embolism without acute cor pulmonale (principal); J96.21 Acute and chronic respiratory failure with hypoxia; N17.9 Acute kidney failure, unspecified; E44.1 Mild protein-calorie malnutrition; I25.10 Atherosclerotic heart disease of native coronary artery without angina pectoris; F32.A Depression, unspecified; J44.9 Chronic obstructive pulmonary disease, unspecified; F41.9 Anxiety disorder, unspecified; N18.2 Chronic kidney disease, stage 2 (mild); E78.5 Hyperlipidemia, unspecified; G89.4 Chronic pain syndrome; I12.9 Hypertensive chronic kidney disease with stage 1 through stage 4 chronic kidney disease, or unspecified chronic kidney disease; E03.9 Hypothyroidism, unspecified; R73.9 Hyperglycemia, unspecified; Z82.49 Family history of ischemic heart disease and other diseases of the circulatory system; Z87.01 Personal history of pneumonia (recurrent); Z79.899 Other long term (current) drug therapy; Z86.11 Personal history of tuberculosis; Z80.42 Family history of malignant neoplasm of prostate; Z95.5 Presence of coronary angioplasty implant and graft; Z68.21 Body mass index [BMI] 21.0-21.9, adult; Z88.5 Allergy status to narcotic agent; Z79.82 Long term (current) use of aspirin; Z86.19 Personal history of other infectious and parasitic diseases; Z87.891 Personal history of nicotine dependence
CPT/HCPCS: 36415; 71045; 71275; 80048; 80053; 80076; 83605; 83735; 83880; 84484; 85025; 85379; 85610; 85730; 87040; 87081; 93005; 94640; 94760; 99285; A4615; G0378; J0456; J0696; J1644; J2930; J3490; J7030; J7040; Q9967

== ENCOUNTER 2023-09-16 10:05 | Inpatient (IN) | payer MEDICARE, MEDICAID ==
[2023-09-16] VITALS (11 sets, daily range): BP systolic 103–162; BP diastolic 73–89; PULSE 91–116; RESP 14–19; TEMP 97–97.7; O2SAT 4–97
[~2023-09-16] VITALS: Ht 177.8 cm; Wt 64.7 kg
[~2023-09-16 10:05] MED LIST changes: +APIX5TAB3 PO; +ATOR20TA66 PO; -PREDNISOLONE
[2023-09-16 11:50] LABS: BASOPHILS % (AUTO) 0.2 % (0-1); EOSINOPHILS % (AUTO) 0.1 % (0-6); HEMATOCRIT 45.3 % (42.0-52.0); HEMOGLOBIN 15.8 g/dl (14.0-17.9); LYMPHOCYTES # (AUTO) 0.7 X10'3 (1.1-4.8); LYMPHOCYTES % (AUTO) 8.4 % (21-51); MEAN CORPUSCULAR HEMOGLOBIN 32.9 PG (27.0-31.0); MEAN CORPUSCULAR HGB CONC 34.8 g/dL (33.0-36.5); MEAN CORPUSCULAR VOLUME 94.4 FL (78-98); MEAN PLATELET VOLUME 6.7 FL (7.4-10.4); MONOCYTES # (AUTO) 0.7 X10'3 (0-0.9); MONOCYTES % (AUTO) 8.4 % (2-12); NEUTROPHILS # (AUTO) 6.9 X10'3 (1.8-7.7); NEUTROPHILS % (AUTO) 82.9 % (42-75); PLATELET COUNT 141 X10'3 (140-440); RED CELL DISTRIBUTION WIDTH 14.4 % (11.5-14.5); WHITE BLOOD COUNT 8.3 X10'3 (4.5-11.0)
[2023-09-16 11:55] LABS: CHLORIDE 95 MMOL/L (99-107)
[2023-09-16] MEDS: traMADol 50MG tablet PO ONE (12:03)
[2023-09-16 12:04] LABS: PLATELET ESTIMATE NORMAL; TOTAL CELLS COUNTED 100
[2023-09-16] MEDS: methylPREDNISolone sod succ 125mg/2ml vial IV ONE (12:04)
[2023-09-16 12:17] LABS: ALBUMIN 3.4 G/DL (3.4-5.0); ANION GAP 6 (8-16); BLOOD UREA NITROGEN 20 MG/DL (7-18); BUN/CREATININE RATIO 21.1 (10.0-20.0); CALCIUM 9.1 MG/DL (8.5-10.1); CREATININE 0.95 MG/DL (0.60-1.10); GLUCOSE 159 MG/DL (70-104); PRO BRAIN NATRIURETIC PEPTIDE 693 PG/ML (0-450); SODIUM 131 MMOL/L (135-145); TOTAL CARBON DIOXIDE 30.1 MMOL/L (24-32); eCRCL 60 ML/MIN; eGFR 77 ML/MIN
[2023-09-16] MEDS: albuterol 2.5 MG/3 ML nebule NEB ONE (12:32)
[2023-09-16] MEDS ORDERED: magnesium 2GM in 50ml NS 50 ML IV PRN (14:50)
[2023-09-16] MEDS ORDERED: ondansetron/PF 4mg/2ml inj IV PRN (14:50)
[2023-09-16] MEDS ORDERED: acetaminophen 325mg tablet PO PRN (14:50)
[2023-09-16] MEDS ORDERED: potassium Cl 40MEQ/1/2NS 520ml 520 ML IV PRN (14:50)
[2023-09-16] MEDS ORDERED: potassium Cl 20 mEq SR tablet PO PRN ×2 (14:50)
[2023-09-16] MEDS ORDERED: magnesium 4gm in 100ml NS 100 ML IV PRN (14:50)
[2023-09-16] MEDS ORDERED: magnesium Cl slow-release 64mg tablet PO PRN (14:50)
[2023-09-16] MEDS: furosemide 10 MG/1 ML 10ml inj IV ONE (15:24)
[2023-09-16] MEDS: CefTRIAXone 2gm/D5W 50ml BAG 50 ML IV ONE (15:25)
[2023-09-16] MEDS: ipratropium/albuterol 3ml nebule NEB SCH (15:54)
[2023-09-16 16:06] LABS: MAGNESIUM 1.8 MG/DL (1.5-2.4); POTASSIUM 4.2 MMOL/L (3.5-5.1)
[2023-09-16] MEDS: PERFLUTREN PROTEIN-A MICROSPHR (Optison) 0.22 MG/ML 3ML VIAL IV ONE (18:00)
[2023-09-16] MEDS: traMADol 50MG tablet PO PRN (18:19)
[2023-09-16] MEDS: pantoprazole 40 MG vial IV SCH (18:20)
[2023-09-16] MEDS: K and/or MAG REPLACEMENT MC SCH (20:00)
[2023-09-16] MEDS: methylPREDNISolone sod succ 125mg/2ml vial IV SCH (21:50)
[2023-09-17] VITALS (24 sets, daily range): BP systolic 99–205; BP diastolic 66–115; PULSE 85–135; RESP 15–26; TEMP 97–98; O2SAT 92–99
[2023-09-17 06:04] LABS: BASOPHILS % (AUTO) 0 % (0-1); EOSINOPHILS % (AUTO) 0 % (0-6); HEMOGLOBIN 15.5 g/dl (14.0-17.9); LYMPHOCYTES # (AUTO) 0.6 X10'3 (1.1-4.8); LYMPHOCYTES % (AUTO) 9.1 % (21-51); MEAN CORPUSCULAR HEMOGLOBIN 32.7 PG (27.0-31.0); MEAN CORPUSCULAR HGB CONC 34.5 g/dL (33.0-36.5); MEAN CORPUSCULAR VOLUME 94.9 FL (78-98); MEAN PLATELET VOLUME 7.1 FL (7.4-10.4); MONOCYTES # (AUTO) 0.5 X10'3 (0-0.9); MONOCYTES % (AUTO) 7.1 % (2-12); NEUTROPHILS # (AUTO) 5.5 X10'3 (1.8-7.7); NEUTROPHILS % (AUTO) 83.8 % (42-75); PLATELET COUNT 160 X10'3 (140-440); RED BLOOD COUNT 4.74 X10'6 (4.70-6.10); RED CELL DISTRIBUTION WIDTH 14.5 % (11.5-14.5); WHITE BLOOD COUNT 6.5 X10'3 (4.5-11.0)
[2023-09-17 06:14] LABS: ALBUMIN 3.2 G/DL (3.4-5.0); ANION GAP 7 (8-16); BLOOD UREA NITROGEN 19 MG/DL (7-18); BUN/CREATININE RATIO 17.9 (10.0-20.0); CALCIUM 9.5 MG/DL (8.5-10.1); CHLORIDE 97 MMOL/L (99-107); CREATININE 1.06 MG/DL (0.60-1.10); GLUCOSE 177 MG/DL (70-104); MAGNESIUM 1.9 MG/DL (1.5-2.4); POTASSIUM 4.1 MMOL/L (3.5-5.1); SODIUM 136 MMOL/L (135-145); TOTAL CARBON DIOXIDE 32.5 MMOL/L (24-32); eCRCL 53 ML/MIN; eGFR 68 ML/MIN
[2023-09-17] MEDS: metoprolol tartrate 25mg tablet PO SCH (15:06)
[2023-09-17] MEDS: levalbuterol 0.63mg/3ml nebule IH SCH (16:51)
[2023-09-17] MEDS: hydrALAZINE 20mg/ml inj. IV ONE (17:25)
[2023-09-18] VITALS (19 sets, daily range): BP systolic 121–159; BP diastolic 77–123; PULSE 43–105; RESP 13–27; TEMP 97.6–98.3; O2SAT 90–100
[2023-09-18 06:39] LABS: BASOPHILS % (AUTO) 0.1 % (0-1); EOSINOPHILS % (AUTO) 0 % (0-6); HEMATOCRIT 44.6 % (42.0-52.0); HEMOGLOBIN 15.4 g/dl (14.0-17.9); LYMPHOCYTES % (AUTO) 9.1 % (21-51); MEAN CORPUSCULAR HEMOGLOBIN 32.8 PG (27.0-31.0); MEAN CORPUSCULAR HGB CONC 34.6 g/dL (33.0-36.5); MEAN CORPUSCULAR VOLUME 94.8 FL (78-98); MEAN PLATELET VOLUME 6.8 FL (7.4-10.4); MONOCYTES # (AUTO) 0.8 X10'3 (0-0.9); MONOCYTES % (AUTO) 7.1 % (2-12); NEUTROPHILS # (AUTO) 9.2 X10'3 (1.8-7.7); NEUTROPHILS % (AUTO) 83.7 % (42-75); PLATELET COUNT 174 X10'3 (140-440); RED CELL DISTRIBUTION WIDTH 14.5 % (11.5-14.5)
[2023-09-18 06:50] LABS: ALBUMIN 3.1 G/DL (3.4-5.0); ANION GAP 2 (8-16); BLOOD UREA NITROGEN 26 MG/DL (7-18); BUN/CREATININE RATIO 27.7 (10.0-20.0); CALCIUM 9.3 MG/DL (8.5-10.1); CHLORIDE 95 MMOL/L (99-107); CREATININE 0.94 MG/DL (0.60-1.10); GLUCOSE 101 MG/DL (70-104); POTASSIUM 4.5 MMOL/L (3.5-5.1); SODIUM 133 MMOL/L (135-145); eCRCL 60 ML/MIN; eGFR 78 ML/MIN
[2023-09-18] MEDS: ipratropium 0.5 MG/2.5ML nebule IH PRN (19:23)
[2023-09-19] VITALS (16 sets, daily range): BP systolic 142–154; BP diastolic 89–103; PULSE 71–99; RESP 13–24; TEMP 97.5–98; O2SAT 94–99
[2023-09-19 06:01] LABS: ALBUMIN 3.2 G/DL (3.4-5.0); ANION GAP 3 (8-16); BLOOD UREA NITROGEN 29 MG/DL (7-18); CALCIUM 9.3 MG/DL (8.5-10.1); CHLORIDE 97 MMOL/L (99-107); CREATININE 0.88 MG/DL (0.60-1.10); GLUCOSE 128 MG/DL (70-104); MAGNESIUM 2.1 MG/DL (1.5-2.4); POTASSIUM 4.6 MMOL/L (3.5-5.1); SODIUM 137 MMOL/L (135-145); TOTAL CARBON DIOXIDE 37.1 MMOL/L (24-32); eCRCL 64 ML/MIN; eGFR 84 ML/MIN
[2023-09-19 06:07] LABS: BASOPHILS % (AUTO) 0.1 % (0-1); EOSINOPHILS % (AUTO) 0 % (0-6); HEMATOCRIT 45.6 % (42.0-52.0); HEMOGLOBIN 15.6 g/dl (14.0-17.9); LYMPHOCYTES # (AUTO) 0.7 X10'3 (1.1-4.8); LYMPHOCYTES % (AUTO) 8.5 % (21-51); MEAN CORPUSCULAR HEMOGLOBIN 32.4 PG (27.0-31.0); MEAN CORPUSCULAR HGB CONC 34.2 g/dL (33.0-36.5); MEAN CORPUSCULAR VOLUME 94.9 FL (78-98); MONOCYTES # (AUTO) 0.3 X10'3 (0-0.9); MONOCYTES % (AUTO) 4.2 % (2-12); NEUTROPHILS # (AUTO) 7.3 X10'3 (1.8-7.7); NEUTROPHILS % (AUTO) 87.2 % (42-75); PLATELET COUNT 195 X10'3 (140-440); RED CELL DISTRIBUTION WIDTH 14.3 % (11.5-14.5); WHITE BLOOD COUNT 8.3 X10'3 (4.5-11.0)
[2023-09-19] MEDS: pantoprazole 40mg Tablet.DR PO SCH (08:10)
[2023-09-19] MEDS ORDERED: traMADol 50MG tablet PO PRN (16:40)
[2023-09-19] MEDS ORDERED: non-formulary drug (Albuterol Sulfate (Ventolin Hfa) 2 PUFFS) PO PRN (16:40)
[2023-09-19] MEDS ORDERED: non-formulary drug (Metoprolol Tartrate 1 TAB) PO SCH (20:00)
[2023-09-19] MEDS ORDERED: apixaban 5mg tablet PO SCH (20:00)
[2023-09-19] MEDS: fluticasone nasal spray 16GM bottle NS SCH (20:13)
[2023-09-19] MEDS: apixaban 5mg tablet PO SCH (20:15)
[2023-09-19] MEDS: atorvastatin 20mg tablet PO SCH (20:15)
[2023-09-19] MEDS: guaiFENesin ER 600mg tablet PO SCH (20:15)
[2023-09-19] MEDS: montelukast 10mg tablet PO SCH (20:16)
[2023-09-19] MEDS: ofloxacin 0.33% 5ml ophthalmic drops EACHEYE SCH (20:22)
[2023-09-19] MEDS: budesonide 0.5mg/2ml UD nebule IH SCH (20:28)
[2023-09-20] VITALS (8 sets, daily range): BP systolic 146–153; BP diastolic 97–98; PULSE 80–106; RESP 16–24; TEMP 97.3–97.5; O2SAT 96–99
[2023-09-20 07:57] LABS: BASOPHILS % (AUTO) 0 % (0-1); EOSINOPHILS % (AUTO) 0 % (0-6); HEMATOCRIT 42.7 % (42.0-52.0); HEMOGLOBIN 14.6 g/dl (14.0-17.9); LYMPHOCYTES # (AUTO) 0.8 X10'3 (1.1-4.8); LYMPHOCYTES % (AUTO) 7.4 % (21-51); MEAN CORPUSCULAR HEMOGLOBIN 32.4 PG (27.0-31.0); MEAN CORPUSCULAR HGB CONC 34.2 g/dL (33.0-36.5); MEAN CORPUSCULAR VOLUME 94.5 FL (78-98); MONOCYTES # (AUTO) 0.6 X10'3 (0-0.9); MONOCYTES % (AUTO) 6.1 % (2-12); NEUTROPHILS # (AUTO) 9.1 X10'3 (1.8-7.7); NEUTROPHILS % (AUTO) 86.5 % (42-75); PLATELET COUNT 185 X10'3 (140-440); RED BLOOD COUNT 4.52 X10'6 (4.70-6.10); RED CELL DISTRIBUTION WIDTH 14.2 % (11.5-14.5); WHITE BLOOD COUNT 10.6 X10'3 (4.5-11.0)
[2023-09-20 08:15] LABS: ANION GAP 3 (8-16); BLOOD UREA NITROGEN 28 MG/DL (7-18); BUN/CREATININE RATIO 32.2 (10.0-20.0); CALCIUM 8.9 MG/DL (8.5-10.1); CHLORIDE 97 MMOL/L (99-107); CREATININE 0.87 MG/DL (0.60-1.10); GLUCOSE 113 MG/DL (70-104); MAGNESIUM 2.2 MG/DL (1.5-2.4); POTASSIUM 4.6 MMOL/L (3.5-5.1); SODIUM 134 MMOL/L (135-145); TOTAL CARBON DIOXIDE 34.4 MMOL/L (24-32); eCRCL 65 ML/MIN; eGFR 85 ML/MIN
[2023-09-20] MEDS: aspirin 81mg, enteric-coated 1 TAB TABLET.DR PO SCH (09:22)
[2023-09-20] MEDS: multivitamins, therapeutics tablet PO SCH (09:24)
[2023-09-20] MEDS: levoTHYROXINE 25mcg tablet PO SCH (09:25)
== END 2023-09-20 15:15 | DRG 189 ==
LOC: ER 10:06 → ED HOLD 14:50 → PCU 3S 20:20
PROVIDERS: ADMIT Internal Medicine; ATTEND Internal Medicine
DX: J96.20 Acute and chronic respiratory failure, unspecified whether with hypoxia or hypercapnia (principal); J44.1 Chronic obstructive pulmonary disease with (acute) exacerbation; E87.1 Hypo-osmolality and hyponatremia; B19.20 Unspecified viral hepatitis C without hepatic coma; F32.A Depression, unspecified; I10 Essential (primary) hypertension; E03.9 Hypothyroidism, unspecified; I48.91 Unspecified atrial fibrillation; E78.5 Hyperlipidemia, unspecified; F41.9 Anxiety disorder, unspecified; G89.29 Other chronic pain; I25.10 Atherosclerotic heart disease of native coronary artery without angina pectoris; Z99.81 Dependence on supplemental oxygen; Z88.5 Allergy status to narcotic agent; Z86.711 Personal history of pulmonary embolism; Z79.899 Other long term (current) drug therapy
CPT/HCPCS: 36415; 71045; 80048; 82948; 83735; 83880; 84132; 84145; 84484; 85007; 85025; 87081; 93005; 93306; 94640; 94760; 96374; 99285; A4615; C9113; G0378; J0696; J1940; J2919; J7614

== ENCOUNTER 2023-10-21 11:00 | Inpatient (IN) | payer MEDICARE, MEDICAID ==
[2023-10-21] VITALS (7 sets, daily range): BP systolic 121; BP diastolic 80; PULSE 81–99; RESP 13–22; TEMP 97.7; O2SAT 95–98
[~2023-10-21] VITALS: Ht 177.8 cm; Wt 64.0 kg
[2023-10-21 11:40] LABS: BASOPHILS % (AUTO) 0.1 % (0-1); EOSINOPHILS % (AUTO) 0.2 % (0-6); HEMATOCRIT 45.8 % (42.0-52.0); HEMOGLOBIN 15.5 g/dl (14.0-17.9); LYMPHOCYTES # (AUTO) 0.5 X10'3 (1.1-4.8); LYMPHOCYTES % (AUTO) 4.2 % (21-51); MEAN CORPUSCULAR HEMOGLOBIN 32.4 PG (27.0-31.0); MEAN CORPUSCULAR HGB CONC 33.8 g/dL (33.0-36.5); MEAN CORPUSCULAR VOLUME 95.9 FL (78-98); MEAN PLATELET VOLUME 7.1 FL (7.4-10.4); MONOCYTES # (AUTO) 0.8 X10'3 (0-0.9); MONOCYTES % (AUTO) 6.9 % (2-12); NEUTROPHILS # (AUTO) 10.2 X10'3 (1.8-7.7); NEUTROPHILS % (AUTO) 88.6 % (42-75); PLATELET COUNT 238 X10'3 (140-440); RED BLOOD COUNT 4.78 X10'6 (4.70-6.10); RED CELL DISTRIBUTION WIDTH 15.1 % (11.5-14.5); WHITE BLOOD COUNT 11.5 X10'3 (4.5-11.0)
[2023-10-21] MEDS: ipratropium/albuterol 3ml nebule NEB PRN (11:40)
[2023-10-21] MEDS: methylPREDNISolone sod succ/PF 40mg inj. IV SCH (11:42)
[2023-10-21] MEDS: methylPREDNISolone sod succ 125mg/2ml vial IV ONE (11:45)
[2023-10-21] MEDS: ipratropium/albuterol 3ml nebule NEB ONE (11:47)
[2023-10-21 11:53] LABS: ALBUMIN 3.5 G/DL (3.4-5.0); ANION GAP 7 (8-16); BLOOD UREA NITROGEN 33 MG/DL (7-18); BUN/CREATININE RATIO 29.7 (10.0-20.0); CALCIUM 9.7 MG/DL (8.5-10.1); CHLORIDE 98 MMOL/L (99-107); CREATININE 1.11 MG/DL (0.60-1.10); GLUCOSE 100 MG/DL (70-104); POTASSIUM 3.8 MMOL/L (3.5-5.1); PRO BRAIN NATRIURETIC PEPTIDE 1406 PG/ML (0-450); SODIUM 139 MMOL/L (135-145); TOTAL CARBON DIOXIDE 34.2 MMOL/L (24-32); eCRCL 50 ML/MIN; eGFR 64 ML/MIN
[2023-10-21] MEDS ORDERED: albuterol 2.5 MG/3 ML nebule NEB ONE (15:00)
[2023-10-21] MEDS: albuterol 2.5 MG/3 ML nebule NEB ONE (15:25)
[2023-10-21] MEDS ORDERED: magnesium sulf-water 2g/50mL 50 ML IV PRN (15:55)
[2023-10-21] MEDS ORDERED: potassium Cl 40MEQ/1/2NS 520ml 520 ML IV PRN (15:55)
[2023-10-21] MEDS ORDERED: magnesium sulf-water 4G/100mL 100 ML IV PRN (15:55)
[2023-10-21] MEDS ORDERED: potassium Cl 20 mEq SR tablet PO PRN ×2 (15:55)
[2023-10-21] MEDS ORDERED: ondansetron/PF 4mg/2ml inj IV PRN (15:55)
[2023-10-21] MEDS ORDERED: magnesium Cl slow-release 64mg tablet PO PRN (15:55)
[2023-10-21] MEDS ORDERED: albuterol 2.5 MG/3 ML nebule NEB PRN (15:55)
[2023-10-21] MEDS ORDERED: acetaminophen 325mg tablet PO PRN ×2 (15:55)
[2023-10-21] MEDS ORDERED: FURO20TA4 PO (16:38)
[2023-10-21] MEDS ORDERED: PANT-47 PO (16:38)
[2023-10-21] MEDS: traMADol 50MG tablet PO PRN (17:47)
[2023-10-21] MEDS: ipratropium/albuterol 3ml nebule NEB SCH (19:36)
[2023-10-21] MEDS ORDERED: heparin, porcine 5000 units/ml vial SQ SCH (20:00)
[2023-10-21] MEDS: metoprolol tartrate 25mg tablet PO SCH (20:33)
[2023-10-21] MEDS: methylPREDNISolone sod succ 125mg/2ml vial IV SCH (20:34)
[2023-10-21] MEDS: apixaban 5mg tablet PO SCH (20:34)
[2023-10-22] VITALS (18 sets, daily range): BP systolic 117–144; BP diastolic 65–102; PULSE 60–96; RESP 10–20; TEMP 96.7–97.9; O2SAT 92–100
[2023-10-22 05:47] LABS: BASOPHILS % (AUTO) 0 % (0-1); EOSINOPHILS % (AUTO) 0 % (0-6); HEMATOCRIT 41.9 % (42.0-52.0); HEMOGLOBIN 14.7 g/dl (14.0-17.9); LYMPHOCYTES # (AUTO) 0.5 X10'3 (1.1-4.8); LYMPHOCYTES % (AUTO) 6.7 % (21-51); MEAN CORPUSCULAR HEMOGLOBIN 33.2 PG (27.0-31.0); MEAN CORPUSCULAR VOLUME 94.7 FL (78-98); MEAN PLATELET VOLUME 7.4 FL (7.4-10.4); MONOCYTES # (AUTO) 0.3 X10'3 (0-0.9); MONOCYTES % (AUTO) 4.7 % (2-12); NEUTROPHILS # (AUTO) 6.5 X10'3 (1.8-7.7); NEUTROPHILS % (AUTO) 88.6 % (42-75); PLATELET COUNT 248 X10'3 (140-440); RED BLOOD COUNT 4.42 X10'6 (4.70-6.10); RED CELL DISTRIBUTION WIDTH 15.1 % (11.5-14.5); WHITE BLOOD COUNT 7.3 X10'3 (4.5-11.0)
[2023-10-22 06:32] LABS: ALANINE AMINOTRANSFERASE 33 U/L (12-78); ALBUMIN 3.2 G/DL (3.4-5.0); ALBUMIN/GLOBULIN RATIO 0.8 (1.1-1.5); ALKALINE PHOSPHATASE 61 IU/L (46-116); ANION GAP 7 (8-16); ASPARTATE AMINO TRANSFERASE 26 U/L (10-37); BILIRUBIN,TOTAL 0.5 MG/DL (0.1-1.0); BLOOD UREA NITROGEN 29 MG/DL (7-18); BUN/CREATININE RATIO 27.4 (10.0-20.0); CALCIUM 9.2 MG/DL (8.5-10.1); CHLORIDE 98 MMOL/L (99-107); CREATININE 1.06 MG/DL (0.60-1.10); GLUCOSE 113 MG/DL (70-104); POTASSIUM 3.6 MMOL/L (3.5-5.1); SODIUM 138 MMOL/L (135-145); TOTAL CARBON DIOXIDE 33.4 MMOL/L (24-32); TOTAL PROTEIN 7.2 G/DL (6.4-8.2); eCRCL 53 ML/MIN; eGFR 68 ML/MIN
[2023-10-22] MEDS: azithromycin/NS 500mg/250ml 250 ML IV SCH (08:58)
[2023-10-22] MEDS: CefTRIAXone 2gm/D5W 50ml BAG 50 ML IV SCH (08:58)
[2023-10-22] MEDS: pantoprazole 40mg Tablet.DR PO SCH (08:59)
[2023-10-22] MEDS: atorvastatin 20mg tablet PO SCH (09:00)
[2023-10-22] MEDS: levoTHYROXINE 25mcg tablet PO SCH (09:00)
[2023-10-22] MEDS: aspirin 81mg, enteric-coated 1 TAB TABLET.DR PO SCH (09:01)
[2023-10-23] VITALS (17 sets, daily range): BP systolic 110–147; BP diastolic 67–93; PULSE 60–86; RESP 15–20; TEMP 96.8–97.8; O2SAT 88–99
[2023-10-23 05:45] LABS: BASOPHILS % (AUTO) 0 % (0-1); EOSINOPHILS % (AUTO) 0 % (0-6); HEMOGLOBIN 13.4 g/dl (14.0-17.9); LYMPHOCYTES # (AUTO) 0.5 X10'3 (1.1-4.8); LYMPHOCYTES % (AUTO) 3.9 % (21-51); MEAN CORPUSCULAR HEMOGLOBIN 32.4 PG (27.0-31.0); MEAN CORPUSCULAR HGB CONC 34.4 g/dL (33.0-36.5); MEAN CORPUSCULAR VOLUME 94.1 FL (78-98); MEAN PLATELET VOLUME 7.2 FL (7.4-10.4); MONOCYTES # (AUTO) 0.5 X10'3 (0-0.9); MONOCYTES % (AUTO) 3.7 % (2-12); NEUTROPHILS # (AUTO) 12.3 X10'3 (1.8-7.7); NEUTROPHILS % (AUTO) 92.4 % (42-75); PLATELET COUNT 229 X10'3 (140-440); RED BLOOD COUNT 4.14 X10'6 (4.70-6.10); RED CELL DISTRIBUTION WIDTH 14.5 % (11.5-14.5); WHITE BLOOD COUNT 13.3 X10'3 (4.5-11.0)
[2023-10-23 06:17] LABS: ALANINE AMINOTRANSFERASE 30 U/L (12-78); ALBUMIN 2.8 G/DL (3.4-5.0); ALBUMIN/GLOBULIN RATIO 0.8 (1.1-1.5); ALKALINE PHOSPHATASE 53 IU/L (46-116); ANION GAP 4 (8-16); ASPARTATE AMINO TRANSFERASE 21 U/L (10-37); BILIRUBIN,TOTAL 0.3 MG/DL (0.1-1.0); BLOOD UREA NITROGEN 25 MG/DL (7-18); BUN/CREATININE RATIO 27.8 (10.0-20.0); CHLORIDE 100 MMOL/L (99-107); GLUCOSE 170 MG/DL (70-104); POTASSIUM 4.3 MMOL/L (3.5-5.1); SODIUM 136 MMOL/L (135-145); TOTAL CARBON DIOXIDE 32.2 MMOL/L (24-32); TOTAL PROTEIN 6.4 G/DL (6.4-8.2); eCRCL 62 ML/MIN; eGFR 82 ML/MIN
[2023-10-23] MEDS: Fluticasone/Umeclidin/Vilanter (Trelegy Ellipta 200-62.5-25) INHALER IH SCH (08:00)
[2023-10-24] VITALS (13 sets, daily range): BP systolic 123–133; BP diastolic 87; PULSE 77–99; RESP 14–20; TEMP 99.4; O2SAT 95–96
[2023-10-24 05:44] LABS: BASOPHILS % (AUTO) 0 % (0-1); EOSINOPHILS % (AUTO) 0 % (0-6); HEMATOCRIT 42.2 % (42.0-52.0); HEMOGLOBIN 14.3 g/dl (14.0-17.9); LYMPHOCYTES # (AUTO) 0.4 X10'3 (1.1-4.8); LYMPHOCYTES % (AUTO) 2.9 % (21-51); MEAN CORPUSCULAR HEMOGLOBIN 32.1 PG (27.0-31.0); MEAN CORPUSCULAR HGB CONC 33.8 g/dL (33.0-36.5); MEAN CORPUSCULAR VOLUME 94.9 FL (78-98); MEAN PLATELET VOLUME 7.5 FL (7.4-10.4); MONOCYTES # (AUTO) 0.5 X10'3 (0-0.9); MONOCYTES % (AUTO) 3.1 % (2-12); NEUTROPHILS # (AUTO) 13.9 X10'3 (1.8-7.7); PLATELET COUNT 261 X10'3 (140-440); RED BLOOD COUNT 4.45 X10'6 (4.70-6.10); RED CELL DISTRIBUTION WIDTH 14.9 % (11.5-14.5); WHITE BLOOD COUNT 14.8 X10'3 (4.5-11.0)
[2023-10-24 05:56] LABS: ALANINE AMINOTRANSFERASE 40 U/L (12-78); ALBUMIN 3.1 G/DL (3.4-5.0); ALBUMIN/GLOBULIN RATIO 0.8 (1.1-1.5); ALKALINE PHOSPHATASE 65 IU/L (46-116); ANION GAP 5 (8-16); ASPARTATE AMINO TRANSFERASE 27 U/L (10-37); BILIRUBIN,TOTAL 0.2 MG/DL (0.1-1.0); BLOOD UREA NITROGEN 27 MG/DL (7-18); BUN/CREATININE RATIO 29.3 (10.0-20.0); CALCIUM 9.1 MG/DL (8.5-10.1); CHLORIDE 99 MMOL/L (99-107); CREATININE 0.92 MG/DL (0.60-1.10); GLUCOSE 142 MG/DL (70-104); POTASSIUM 4.4 MMOL/L (3.5-5.1); SODIUM 134 MMOL/L (135-145); TOTAL CARBON DIOXIDE 30.2 MMOL/L (24-32); TOTAL PROTEIN 6.9 G/DL (6.4-8.2); eCRCL 61 ML/MIN; eGFR 80 ML/MIN
[2023-10-24] MEDS ORDERED: ALBU2.5V7 NEB (11:35)
[2023-10-24] MEDS ORDERED: LEVO-65 PO (11:35)
[2023-10-24] MEDS ORDERED: PRED20TA PO (11:36)
== END 2023-10-24 18:13 | disposition home or self-care (01) | DRG 189 ==
LOC: ER 11:01 → PCU 3S 15:54 → UNDOADMIN 15:54 → PCU 3S 15:59
PROVIDERS: ADMIT Internal Medicine; ATTEND Internal Medicine
DX: J96.21 Acute and chronic respiratory failure with hypoxia (principal); I26.99 Other pulmonary embolism without acute cor pulmonale; J44.1 Chronic obstructive pulmonary disease with (acute) exacerbation; I24.89 Other forms of acute ischemic heart disease; B19.10 Unspecified viral hepatitis B without hepatic coma; F32.A Depression, unspecified; B19.20 Unspecified viral hepatitis C without hepatic coma; E03.9 Hypothyroidism, unspecified; E78.5 Hyperlipidemia, unspecified; N18.30 Chronic kidney disease, stage 3 unspecified; J98.4 Other disorders of lung; J43.9 Emphysema, unspecified; F41.9 Anxiety disorder, unspecified; G89.4 Chronic pain syndrome; I12.9 Hypertensive chronic kidney disease with stage 1 through stage 4 chronic kidney disease, or unspecified chronic kidney disease; I25.10 Atherosclerotic heart disease of native coronary artery without angina pectoris; Z95.5 Presence of coronary angioplasty implant and graft; Z87.891 Personal history of nicotine dependence; Z87.01 Personal history of pneumonia (recurrent); Z86.711 Personal history of pulmonary embolism; Z82.49 Family history of ischemic heart disease and other diseases of the circulatory system; Z79.899 Other long term (current) drug therapy; Z79.01 Long term (current) use of anticoagulants; Z88.5 Allergy status to narcotic agent; Z99.81 Dependence on supplemental oxygen
CPT/HCPCS: 36415; 71045; 80048; 80053; 83605; 83880; 84484; 85025; 87040; 87081; 93005; 94640; 94760; 96374; 97116; 97161; 97530; 99285; A4615; G0378; J0456; J0696; J2919; J7040

== ENCOUNTER → 2024-11-26 | Outpatient (CLI) | payer MEDICARE, MEDICAID ==
[~2024-11-26] MED LIST changes: -ASPI-611 PO; -ATOR20TA66 PO; +ATOR40TA72 PO; +FLUT16SP26 BOTHNARES; -FLUT16SP26 NS; +FURO20TA4 PO; -LACT1CAP26 PO; +LORA10TA7 PO; -MONT-40 PO; -OFLO5DRO6 EACHEYE; +OMEP20CA16 PO; +PRED20TA PO; +SACU1TAB PO
--- NOTE | 2024-11-26 10:06 | VASCULAR REPORT ---
Bilateral Lower Extremity Arterial Duplex Clinical History: Peripheral arterial disease, left foot wound Comparison: None Technique: Duplex Doppler evaluation including color Doppler and spectral/pulsed waveform analysis of the lower extremity arteries was performed. Findings: RIGHT: Peak systolic velocities are as follows: PHARMACY TECHNICIAN PER DIEM 56 cm/s Deep femoral 55 cm/s SFA proximal 45 cm/s SFA mid-portion 43 cm/s SFA distal 17 cm/s Popliteal 29 cm/s Posterior tibial 22 cm/s Anterior tibial -34 cm/s Peroneal 24 cm/s Dorsalis pedis 0 cm/s The waveforms are monophasic in the right posterior tibial artery. LEFT: Peak systolic velocities are as follows: PHARMACY TECHNICIAN PER DIEM 69 cm/s Deep femoral 142 cm/s SFA proximal 69 cm/s SFA mid-portion 64 cm/s SFA distal 26 cm/s Popliteal 23 cm/s Posterior tibial 0 cm/s Anterior tibial 0 cm/s Peroneal 31 cm/s Dorsalis pedis 0 cm/s The waveforms are monophasic in the peroneal artery. IMPRESSION: No hemodynamically significant stenosis based on peak systolic velocity criteria. Possible occlusion of the right dorsalis pedis artery. Possible occlusion of the left posterior tibial artery and left dorsalis pedis artery. WILNER not performed due to pain in bilateral calves. Monophasic arterial waveforms in the right posterior tibial artery and left peroneal artery suggestiv e of underlying peripheral arterial disease. REFERENCE VALUES, [facility] ([facility]) vascular Imaging Lab Criteria: Peak systolic velocity rang es (in cm/sec) are as follows: <150 cm/s - <20 % stenosis 150-200 cm/s - 20-49% stenosis 200-300 cm/s - 50-75% stenosis >300 cm/s -> 75% stenosis
== END | disposition home or self-care (01) ==
LOC: VAS 07:57
PROVIDERS: ATTEND Student in an Organized Health Care Education/Training Program
DX: I73.9 Peripheral vascular disease, unspecified (principal)
CPT/HCPCS: 93925